=== PATIENT | male | born 1950 | race Caucasian/White ===

== ENCOUNTER 2021-03-08 08:16 | Emergency (ER) | payer BC, MEDICAID ==
[~2021-03-08] VITALS: Ht 180.3 cm; Wt 134.1 kg
[~2021-03-08 08:16] MED LIST: HYDR25SU32 RC; PANT-47 PO; SERT25TA PO
[2021-03-08 09:21] LABS: BASOPHILS # (AUTO) 0.1 X10'3 (0-0.2); BASOPHILS % (AUTO) 0.9 % (0-1); EOSINOPHILS # (AUTO) 0.2 X10'3 (0-0.9); EOSINOPHILS % (AUTO) 3.6 % (0-6); HEMATOCRIT 40.4 % (42.0-52.0); HEMOGLOBIN 13.3 g/dl (14.0-17.9); LYMPHOCYTES # (AUTO) 1.3 X10'3 (1.1-4.8); MEAN CORPUSCULAR HEMOGLOBIN 29.4 PG (27.0-31.0); MEAN CORPUSCULAR HGB CONC 32.8 g/dL (33.0-36.5); MEAN CORPUSCULAR VOLUME 89.5 FL (78-98); MEAN PLATELET VOLUME 9.8 FL (7.4-10.4); MONOCYTES # (AUTO) 0.4 X10'3 (0-0.9); MONOCYTES % (AUTO) 6.5 % (2-12); PLATELET COUNT 193 X10'3 (140-440); RED BLOOD COUNT 4.51 X10'6 (4.70-6.10)
[2021-03-08 09:37] LABS: ALANINE AMINOTRANSFERASE 28 U/L (12-78); ALBUMIN 3.4 G/DL (3.4-5.0); ALBUMIN/GLOBULIN RATIO 1.1 (1.1-1.5); ALKALINE PHOSPHATASE 89 IU/L (46-116); ANION GAP 10 (8-16); ASPARTATE AMINO TRANSFERASE 19 U/L (10-37); BILIRUBIN,TOTAL 0.4 MG/DL (0.1-1.0); BLOOD UREA NITROGEN 8 MG/DL (7-18); CALCIUM 8.4 MG/DL (8.5-10.1); CHLORIDE 108 MMOL/L (99-107); CREATININE 0.73 MG/DL (0.60-1.10); ETHANOL < 0.010 GM/DL (0.0-0.010); GLUCOSE 132 MG/DL (70-104); POTASSIUM 3.4 MMOL/L (3.5-5.1); SODIUM 145 MMOL/L (135-145); TOTAL CARBON DIOXIDE 26.9 MMOL/L (24-32); TOTAL PROTEIN 6.5 G/DL (6.4-8.2); eGFR > 90 ML/MIN
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
[2021-03-08 10:20] LABS: URINE AMPHETAMINE SCREEN NEGATIVE (Neg); URINE BARBITUATE SCREEN NEGATIVE (Neg); URINE BENZODIAZEPINES SCREEN NEGATIVE (Neg); URINE CANNABINOID SCREEN NEGATIVE (Neg); URINE COCAINE SCREEN NEGATIVE (Neg); URINE METHADONE SCREEN NEGATIVE (Neg); URINE OPIATE SCREEN NEGATIVE (Neg); URINE PHENCYCLIDINE SCREEN NEGATIVE (Neg)
--- NOTE | 2021-03-08 10:40 | NUR ---
Pt. sitting in bed talking, appears to be responding to internal stimuli.
--- NOTE | 2021-03-08 13:12 | NUR ---
Pt is calm and cooperative. Occationally talks to himself. Given lunch tray. FSBS=95 before lunch.
--- NOTE | 2021-03-08 13:29 | NUR ---
Covid swab obtained. Pt originally refused. Security was called. Pt complied.
--- NOTE | 2021-03-08 13:34 | NUR ---
Pt refuses to discuss home medications. "My doctor is in charge of that." Unable to Reconcile Meds at this time.
--- NOTE | 2021-03-08 13:45 | NUR ---
Pt up to void.
--- NOTE | 2021-03-08 14:24 | NUR ---
"I am going to check out now. I am leaving right now." He is menacing. Pacing the floor. Security was paged.
[2021-03-08] MEDS ORDERED: diphenhydrAMINE 50 mg/ml inj IM ONE ×2 (14:40→19:55)
[2021-03-08] MEDS ORDERED: haloperidol lactate 5mg/ml inj IM ONE (14:40)
--- NOTE | 2021-03-08 14:40 | NUR ---
Pt is refusing medications. Continues to be menacing, agressively pointing his finger, "You are part of the problem." Security paged.
--- NOTE | 2021-03-08 14:50 | NUR ---
Security at bedside during medication administration. Pt is compliant when security is presant.
--- NOTE | 2021-03-08 15:13 | NUR ---
Pt got out of bed and stated, "I can leave now. I was told that I can go." Reminded that he must stay. He sat back down and continued to talk to himself.
--- NOTE | 2021-03-08 18:44 | NUR ---
Patient sedated d/t IM medications. Provided warm blanket and physical assessment completed. Did not wake for dinner.
--- NOTE | 2021-03-08 19:44 | NUR ---
Patient awoke agitated and appears to be respondin to IS. Patient dismissed nurse upon introduction.
[2021-03-08] MEDS ORDERED: LORazepam 2 mg/ml vial ONE (19:48)
[2021-03-08] MEDS ORDERED: diphenhydrAMINE 50 mg/ml inj ONE (19:49)
[2021-03-08] MEDS ORDERED: LORazepam 2 mg/ml vial IM ONE (19:55)
--- NOTE | 2021-03-08 19:57 | NUR ---
Patient continued to escalate. Nurse attempted to engage; patient told nurse, "get back to your desk you stupid bitch." Ativan 2mg IM and Benadryl 50mg IM provided per MD order; with security standby. Patient continues to express profanity toward staff.
--- NOTE | 2021-03-08 20:57 | NUR ---
Patient observed sleeping. He does not appear to be having difficulties; resperations even and non labored. Patient self repositioning.
--- NOTE | 2021-03-08 22:18 | NUR ---
Report to [facility], Eliana,
--- NOTE | 2021-03-08 23:31 | NUR ---
Patient appears to be sleeping without difficulty. No respiratory distress presented. Self repositioning.
--- NOTE | 2021-03-09 01:04 | NUR ---
Patient appears to be sleeping without difficulty. Continues to self reposition and no respiratory distress presented.
--- NOTE | 2021-03-09 03:28 | NUR ---
Patient observed sleeping and does not appear to be having difficulty. No respirator distress observed and self repositioning.
--- NOTE | 2021-03-09 05:01 | NUR ---
Patient appears to be sleeping without difficulty. No respiratory distress observed. Patient continues to slef reposition.
--- NOTE | 2021-03-09 09:12 | NUR ---
Pt in bed quietly mumbling words to himself. Intermittent periods of verbal agitation toward medical staff. Pt redirectable and able to distract.
--- NOTE | 2021-03-09 12:00 | NUR ---
Pt in bed eyes closed.
--- NOTE | 2021-03-09 12:02 | NUR ---
Pt is lying in bed awake. Denies SI & HI at this time.
--- NOTE | 2021-03-09 15:00 | NUR ---
Pt in bed resting comfortably. Denies SI/HI at this time.
--- NOTE | 2021-03-09 17:35 | NUR ---
Patient refused vitals.
[2021-03-09] MEDS ORDERED: haloperidol lactate 5mg/ml inj ONE ×2 (17:47→17:49)
[2021-03-09] MEDS ORDERED: LORazepam 2 mg/ml vial IM ONE (18:05)
[2021-03-09] MEDS ORDERED: diphenhydrAMINE 50 mg/ml inj IM ONE (18:05)
--- NOTE | 2021-03-09 19:08 | NUR ---
Pt finished with dinner, pt is currenty sleeping on left side in no distress, appears to be sleeping.
--- NOTE | 2021-03-09 21:31 | NUR ---
Pt appears to be sleeping, in no distress.
--- NOTE | 2021-03-10 00:17 | NUR ---
pt appears to be sleeping in his back, no distress noted.
--- NOTE | 2021-03-10 02:13 | NUR ---
Pt appears to be sleeping, no distress noted.
--- NOTE | 2021-03-10 05:02 | NUR ---
Pt appears to be sleeping, no distress noted.
--- NOTE | 2021-03-10 05:11 | NUR ---
pt refused vitals.
[2021-03-10] MEDS ORDERED: FLUT16SP2 BOTHNARES (12:46)
[2021-03-10] MEDS ORDERED: METF-437 PO (12:46)
[2021-03-10] MEDS ORDERED: ALBU8HFA PO (12:46)
[2021-03-10] MEDS ORDERED: FLO0.4C PO (12:46)
[2021-03-10] MEDS ORDERED: NICO-687 TOP (12:46)
[2021-03-10] MEDS ORDERED: LISI20TA28 PO (12:46)
[2021-03-10] MEDS ORDERED: PANT-47 PO (12:46)
[2021-03-10] MEDS ORDERED: ATOR40TA PO (12:46)
[2021-03-10] MEDS ORDERED: ASPI-1265 PO (12:46)
[2021-03-10] MEDS ORDERED: albuterol 2.5 MG/3 ML nebule NEB PRN (14:35)
[2021-03-10] MEDS ORDERED: lisinopril 10 MG tablet PO SCH (14:39)
[2021-03-10] MEDS ORDERED: aspirin 81mg tab.chew PO SCH (14:40)
[2021-03-10] MEDS ORDERED: pantoprazole 40mg Tablet.DR PO SCH (14:42)
[2021-03-10] MEDS ORDERED: tamsulosin 0.4mg capsule PO SCH (14:43)
[2021-03-10] MEDS ORDERED: nicotine 21mg patch - 24 hr TD SCH (14:43)
--- NOTE | 2021-03-10 17:08 | NUR ---
[facility] accepted pt for inpatient treatment. Dr. Davis is accepting doctor. [address], [place]. Would like a nurse to nurse report. [phone]
--- NOTE | 2021-03-10 17:16 | NUR ---
Nurse to Nurse report called to Selam ramirez RN.
[2021-03-10] MEDS ORDERED: metFORMIN 850mg tablet PO SCH (18:00)
--- NOTE | 2021-03-10 19:13 | NUR ---
[facility] ETA 45 MIN
--- NOTE | 2021-03-10 19:28 | NUR ---
The patient is resting on his bed. He is polite
--- NOTE | 2021-03-10 20:31 | NUR ---
Nurse to nurse with Peggy at [facility] [phone]
[2021-03-10 20:32] VITALS: BP 159/81
[2021-03-11] MEDS ORDERED: atorvastatin 20mg tablet PO SCH (08:00)
[2021-03-11] MEDS ORDERED: fluticasone nasal spray 16GM bottle NS SCH (08:00)
== END 2021-03-10 20:34 ==
LOC: ER 08:16
DX: F20.0 Paranoid schizophrenia (principal); Z20.822 Contact with and (suspected) exposure to COVID-19; Z60.2 Problems related to living alone; Z98.890 Other specified postprocedural states; Z79.82 Long term (current) use of aspirin; Z79.899 Other long term (current) drug therapy
CPT/HCPCS: 36415; 80053; 80305; 80320; 82948; 84443; 85025; 87635; 96372; 99285; C9803; J1200; J1630; J2060

== ENCOUNTER 2021-05-25 15:43 | Inpatient (IN) | payer BC, MEDICAID ==
[~2021-05-25] VITALS: Ht 180.3 cm; Wt 112.0 kg
[~2021-05-25 15:43] MED LIST changes: +ALBU8HFA PO; +ASPI-1265 PO; +ATOR40TA PO; +FLO0.4C PO; +FLUT16SP2 BOTHNARES; -HYDR25SU32 RC; +LISI20TA28 PO; +METF-437 PO; +NICO-687 TD; +PALI9TAB4 PO; +SERT-433 PO; -SERT25TA PO; +TRAZ-251 PO
[2021-05-25 16:47] LABS: BASOPHILS # (AUTO) 0.1 X10'3 (0-0.2); EOSINOPHILS # (AUTO) 0.1 X10'3 (0-0.9); EOSINOPHILS % (AUTO) 1.3 % (0-6); HEMATOCRIT 35.5 % (42.0-52.0); HEMOGLOBIN 12.7 g/dl (14.0-17.9); LYMPHOCYTES # (AUTO) 1.2 X10'3 (1.1-4.8); LYMPHOCYTES % (AUTO) 10.8 % (21-51); MEAN CORPUSCULAR HEMOGLOBIN 31.1 PG (27.0-31.0); MEAN CORPUSCULAR HGB CONC 35.7 g/dL (33.0-36.5); MEAN CORPUSCULAR VOLUME 87.1 FL (78-98); MEAN PLATELET VOLUME 9.3 FL (7.4-10.4); MONOCYTES # (AUTO) 0.9 X10'3 (0-0.9); MONOCYTES % (AUTO) 8.3 % (2-12); NEUTROPHILS # (AUTO) 8.7 X10'3 (1.8-7.7); NEUTROPHILS % (AUTO) 78.6 % (42-75); PLATELET COUNT 282 X10'3 (140-440); RED BLOOD COUNT 4.08 X10'6 (4.70-6.10); RED CELL DISTRIBUTION WIDTH 13.7 % (11.5-14.5)
[2021-05-25 17:01] LABS: ALANINE AMINOTRANSFERASE 27 U/L (12-78); ALBUMIN 3.2 G/DL (3.4-5.0); ALBUMIN/GLOBULIN RATIO 0.8 (1.1-1.5); ALKALINE PHOSPHATASE 100 IU/L (46-116); ANION GAP 13 (8-16); ASPARTATE AMINO TRANSFERASE 22 U/L (10-37); BILIRUBIN,TOTAL 0.4 MG/DL (0.1-1.0); BLOOD UREA NITROGEN 24 MG/DL (7-18); BUN/CREATININE RATIO 29.6 (5.4-32.0); CALCIUM 8.9 MG/DL (8.5-10.1); CHLORIDE 102 MMOL/L (99-107); CREATININE 0.81 MG/DL (0.60-1.10); GLUCOSE 145 MG/DL (70-104); POTASSIUM 4.2 MMOL/L (3.5-5.1); SODIUM 142 MMOL/L (135-145); TOTAL CARBON DIOXIDE 27.4 MMOL/L (24-32); eGFR > 90 ML/MIN
[2021-05-25 17:12] LABS: ETHANOL < 0.010 GM/DL (0.0-0.010)
[2021-05-25 18:15] LABS: CLARITY,URINE CLEAR (Clear); COLOR,URINE YELLOW (Yellow); GLUCOSE, URINE NEGATIVE (Neg); KETONES,URINE 15 mg/dl (Neg); LEUKOCYTE ESTERASE ,URINE NEGATIVE (Neg); NITRITES, URINE NEGATIVE (Neg); OCCULT BLOOD,URINE NEGATIVE (Neg); PROTEIN,URINE TRACE mg/dl (Neg); UROBILINOGEN,URINE 0.2 E.U/dL (0.2-1.0)
[2021-05-25 18:28] LABS: UA COLLECTION TYPE URINAL
[2021-05-25 18:29] LABS: HYALINE CASTS 0-3 /LPF (NEGATIVE); MUCUS STRANDS FEW /LPF (Neg); SQUAMOUS EPITHELIAL CELL,UR FEW /LPF (FEW)
[2021-05-25 18:30] LABS: BACTERIA,URINE FEW /HPF (Neg); RBC,URINE 0-2 /HPF (0-2); WBC,URINE 0-4 /HPF (0-4)
[2021-05-25 18:31] LABS: URINE AMPHETAMINE SCREEN NEGATIVE (Neg); URINE BARBITUATE SCREEN NEGATIVE (Neg); URINE BENZODIAZEPINES SCREEN NEGATIVE (Neg); URINE CANNABINOID SCREEN NEGATIVE (Neg); URINE COCAINE SCREEN NEGATIVE (Neg); URINE METHADONE SCREEN NEGATIVE (Neg); URINE OPIATE SCREEN NEGATIVE (Neg); URINE PHENCYCLIDINE SCREEN NEGATIVE (Neg)
--- NOTE | 2021-05-25 20:00 | NUR ---
patient in using restroom at this time with aid, patient was incontinent in brief and cleaned off
[2021-05-25] MEDS ORDERED: DOXE50CA4 PO (20:01)
[2021-05-25] MEDS ORDERED: AMOX-580 PO (20:03)
[2021-05-25] MEDS ORDERED: LISI20TA28 PO (20:07)
[2021-05-25] MEDS ORDERED: DOXY100C76 PO (20:10)
[2021-05-25] MEDS ORDERED: TRAZ-251 PO (20:50)
[2021-05-25] MEDS ORDERED: SERT25TA PO (20:52)
--- NOTE | 2021-05-25 21:00 | NUR ---
patient is awake and requested to use the bathroom, pt was assisted. patient was able to communicate alert and orientated questions appropriatly at this time.
[2021-05-25] MEDS ORDERED: NICO-687 TD (21:01)
--- NOTE | 2021-05-25 22:00 | NUR ---
pictures wehre taken of patients wounds on groin area and bottom all documented in wounds comment.
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
[2021-05-25] MEDS ORDERED: LORazepam 2 mg/ml vial IM ONE (22:50)
[2021-05-25] MEDS ORDERED: haloperidol lactate 5mg/ml inj IM ONE (22:50)
[2021-05-25] MEDS ORDERED: diphenhydrAMINE 50 mg/ml inj IM ONE (22:50)
--- NOTE | 2021-05-25 23:00 | NUR ---
patient was yelling at staff members and yelling "tell that road driver to stop watching me i dont want that cameroonian getting into my business" also yelling many slurs of obscenities at all staff members. patient was unable to be calmed down by staff members. doctor was told about circumstances and medicaiton was ordered. patient was unable to answer any questions appropriatly.
[2021-05-25] MEDS ORDERED: albuterol 2.5 MG/3 ML nebule NEB PRN (23:25)
--- NOTE | 2021-05-26 | NUR ---
patient is resting supine
--- NOTE | 2021-05-26 01:00 | NUR ---
patient sleeping on right side
--- NOTE | 2021-05-26 02:00 | NUR ---
patient is sleeping on right side
--- NOTE | 2021-05-26 03:00 | NUR ---
patient is resting on right side.
--- NOTE | 2021-05-26 04:19 | NUR ---
patient is resting on right side.
--- NOTE | 2021-05-26 05:00 | NUR ---
patient resting. no complaints at this time
--- NOTE | 2021-05-26 07:00 | NUR ---
pt. resting in bed.
[2021-05-26] MEDS ORDERED: LORazepam 1 MG tablet PO ONE (07:25)
[2021-05-26] MEDS: sertraline 50mg tablet PO SCH (07:41)
[2021-05-26] MEDS: tamsulosin 0.4mg capsule PO SCH (07:41)
[2021-05-26] MEDS: aspirin 81mg tab.chew PO SCH (07:42)
[2021-05-26] MEDS: lisinopril 10 MG tablet PO SCH (07:42)
[2021-05-26] MEDS: atorvastatin 20mg tablet PO SCH (07:42)
[2021-05-26] MEDS: amox tr/potassium clavulanate 875/125mg TAB PO SCH ×2 (07:42→19:51)
[2021-05-26] MEDS: pantoprazole 40mg Tablet.DR PO SCH (07:42)
[2021-05-26] MEDS: nicotine 21mg patch - 24 hr TD SCH (07:43)
[2021-05-26] MEDS: fluticasone nasal spray 16GM bottle NS SCH (08:00)
[2021-05-26] MEDS: metFORMIN 850mg tablet PO SCH ×3 (08:00→19:51)
--- NOTE | 2021-05-26 08:00 | NUR ---
pt. agitated and cursing. Pt given 2 mg of Ativan.
[2021-05-26] MEDS: DOXYCYCLINE 100MG CAPSULE PO SCH ×2 (08:53→17:58)
--- NOTE | 2021-05-26 09:00 | NUR ---
pt. resting comfortably in bed.
--- NOTE | 2021-05-26 11:00 | NUR ---
Pt. in bed resting comfortably.
--- NOTE | 2021-05-26 13:00 | NUR ---
Pt. sitting in bed eating lunch.
[2021-05-26] MEDS ORDERED: NICOTINE POLACRILEX 2 MG LOZENGE BC PRN (16:20)
[2021-05-26] MEDS ORDERED: acetaminophen 325mg tablet PO PRN ×2 (16:20)
[2021-05-26] MEDS ORDERED: loperamide 2mg capsule PO PRN (16:20)
--- NOTE | 2021-05-26 16:21 | NUR ---
Admission note: Pt admitted to [place] [facility] today on a 5150 at 1556 for GD escorted from our ER escorted by security via W/C. Pt was found trespassing and defecating on a doctors porch more than once. Pt covered in his own feces, delusional and responding to internal stimuli. Pt arrives to the unit incontinent of feces, with a splint to the R hand, RIS. Pt resistant to care. Pt refuses MRSA nasal swab. Refuses skin check. Pt does have various rashes with pictures taken in the ER. PT refuses to allow staff to help in the shower. PT kicks staff out of the shower room and showers self. Pt has history of schizoaffective disorder, anxiety, DM II. Pt arrived with no belongings except something in the ER safe. Clothes were soiled/ruined and disposed of.
[2021-05-26 17:38] VITALS: BP 108/54
[2021-05-26] MEDS: lactobacillus rhamnosus 10,000 MMU CELLS/CAPSULE PO SCH (19:51)
[2021-05-26] MEDS: traZODone 50mg tablet PO PRN (19:51)
--- NOTE | 2021-05-27 01:16 | NUR ---
Nursing Progress Note: Clemente Legal hold: 5150 Client on involuntary status for GD Report received from [facility] with use of SBAR. Why are they here: Pt admitted to [place] [facility] on a 5150 at 1556 for GD escorted from our ER by security via W/C. Pt was found trespassing and defecating on a doctors porch more than once. Pt covered in his own feces, delusional and responding to internal stimuli. Pt arrives to the unit incontinent of feces, with a splint to the R hand, RIS. Pt resistant to care. Pt refuses MRSA nasal swab. Refuses skin check. Pt does have various rashes with pictures taken in the ER. PT refuses to allow staff to help in the shower. PT kicks staff out of the shower room and showers self. Pt has history of schizoaffective disorder, anxiety, DM II. Pt arrived with no belongings except something in the ER safe. Clothes were soiled/ruined and disposed of. Assessment What has happened this shift: Received pt lying in bed. When asked how pt was doing he states, I already took my meds and I need my hand wrapped. When asked why his hand is in a cast pt states I fell and slipped on concrete. Pt refused care, 1:1 assessment and told this RN to get out and that he knows this RN is talking about him. At med pass the pt stated are you trying to poison me? What color of skin was the Dr who prescribed these to me? Pt took all HS medication and went back to bed. S/I, H/I: Denies A/VH: Denies Sleep: ADL's: Needs assistance Group attendance: NA Were meds taken: Yes Any med S/E: None observed or reported Mental Status Exam Appearance: Disheveled with green scrubs Eye contact: Fair/intense Behavior: Irritable, resistant to care Speech: Clear, audible, minimal Mood: Irritable Affect: Blunted Thought process: Thought blocking Thought Content: Meeting needs Cognition: A/O Insight: Poor Judgment: Poor Interventions PRN's used: Therapeutic interventions: Maintained a safe and supportive environment, ensured contract for safety, provided clear and simple instructions, attempted to provide therapeutic communication, encouraged independent performance of ADLs and provided assistance as needed, and maintained Q 15 min safety checks. Restraints/seclusion/emergency medication: NA Justification of Continued Inpatient Treatment: Requires interruption of current crisis in a safe and therapeutic environment.
--- NOTE | 2021-05-27 07:32 | NUR ---
Note: Pt soiled BM this AM. Pt refused labs. Assisted pt with cleanup and new scrubs and new linen.
[2021-05-27] MEDS ORDERED: traMADol 50MG tablet PO ONE (07:45)
[2021-05-27 08:00] VITALS: BP 110/72
[2021-05-27] MEDS: nicotine 21mg patch - 24 hr TD SCH (08:00)
[2021-05-27] MEDS: fluticasone nasal spray 16GM bottle NS SCH (08:00)
[2021-05-27] MEDS: amox tr/potassium clavulanate 875/125mg TAB PO SCH ×2 (08:00→20:27)
[2021-05-27] MEDS: tamsulosin 0.4mg capsule PO SCH (08:26)
[2021-05-27] MEDS: aspirin 81mg tab.chew PO SCH (08:26)
[2021-05-27] MEDS: lactobacillus rhamnosus 10,000 MMU CELLS/CAPSULE PO SCH ×2 (08:26→20:27)
[2021-05-27] MEDS: pantoprazole 40mg Tablet.DR PO SCH (08:26)
[2021-05-27] MEDS: PALIPERIDONE 3 MG TAB.ER.24 PO SCH (08:26)
[2021-05-27] MEDS: sertraline 50mg tablet PO SCH (08:27)
[2021-05-27] MEDS: lisinopril 10 MG tablet PO SCH (08:27)
[2021-05-27] MEDS: atorvastatin 20mg tablet PO SCH (08:27)
[2021-05-27] MEDS: metFORMIN 850mg tablet PO SCH ×3 (08:29→20:28)
[2021-05-27] MEDS: DOXYCYCLINE 100MG CAPSULE PO SCH ×2 (08:30→17:13)
[2021-05-27 11:03] LABS: HEMOGLOBIN A1C 6.6 % (4.5-6.2)
[2021-05-27 11:18] LABS: CHOL/HDL RATIO 2.7 (0.00-4.99); CHOLESTEROL 77 MG/DL (0-200); HDL CHOLESTEROL 29 MG/DL (35-60); LDL CHOLESTEROL 41 MG/DL (50-100); TRIGLYCERIDES 77 MG/DL (20-135)
--- NOTE | 2021-05-27 13:03 | NUR ---
Note: Attempted to help pt change soiled pants and attends. Pt refusing help. Attempted to reapply melvin bandage to pts splint but pt uncooperative. Pt states he takes care of himself and pt is not taking care of himself. PT partially cleaned up, refused attends. Pt is wearing green scrubs. PT threw his soiled linen onto the middle of the floor with his soiled pants and attends. Pt will be eating in his room so not to spread feces all over the group room.
[2021-05-27] MEDS: traMADol 50MG tablet PO SCH ×2 (13:05→20:28)
--- NOTE | 2021-05-27 14:43 | NUR ---
Nursing Progress Note: Legal hold: 5150 Client on involuntary status for GD Report received from Avani Calix RN with use of SBAR. Why are they here: Pt admitted to [place] on a 5150 at 1556 for GD escorted from our ER by security via W/C. Pt was found trespassing and defecating on a doctors porch more than once. Pt covered in his own feces, delusional and responding to internal stimuli. Pt arrives to the unit incontinent of feces, with a splint to the R hand, RIS. Pt resistant to care. Pt refuses MRSA nasal swab. Refuses skin check. Pt does have various rashes with pictures taken in the ER. PT refuses to allow staff to help in the shower. PT kicks staff out of the shower room and showers self. Pt has history of schizoaffective disorder, anxiety, DM II. Pt arrived with no belongings except something in the ER safe. Clothes were soiled/ruined and disposed of. Assessment What has happened this shift: Patietn resting in bed this am, this short story writer approached patient to introduce my self, patient was rude and foul mouth. Clemente said "get the fu*k out of my room, patient was very aggressive. PCT spoke to Clemente in regard to his aggression, patient did listen. This short story writer passed am medication in the breakfast room, this included pain medication for his fx right arm. Patient was thankful but still cranky. Patient refused labs this am, but did allow a x-ray, although x-ray was not good quality due to splint being somewhat in place. Clemente has soiled himself 2 times as of this note, CRN has tried to help patient with clean up and he is less than helpful per CRN notes. Clemente denies the need of any psych help. "I don't need psych help, why are you pushing that on me?".l S/I, H/I: Denies A/VH: Denies Sleep: rested in his room most of the day ADL's: Needs assistance Group attendance: NA Were meds taken: Yes Any med S/E: None observed or reported Mental Status Exam Appearance: Disheveled with green scrubs Eye contact: Fair/intense Behavior: Irritable, resistant to care Speech: Clear, audible, and loud Mood: Irritable Affect: Blunted Thought process: "I don't need anyones help get out of here" Thought Content: Hard to access Cognition: A/O x 3 not to situation Insight: Poor Judgment: Poor Interventions PRN's used: Tramadol now is scheduled Therapeutic interventions: Maintained a safe and supportive environment, ensured contract for safety, provided clear and simple instructions, attempted to provide therapeutic communication, encouraged independent performance of ADLs and provided assistance as needed, and maintained Q 15 min safety checks. Restraints/seclusion/emergency medication: NA Justification of Continued Inpatient Treatment: Requires interruption of current crisis in a safe and therapeutic environment. Clemente is unable to plan for a safe discharge back into the community at this time. patient would likely be re admitted if discharged
[2021-05-27 20:03] VITALS: BP 96/58
--- NOTE | 2021-05-28 00:20 | NUR ---
Nursing Progress Note: Legal hold: 5150 Client on involuntary status for GD Report received from [facility] with use of SBAR. Why are they here: Pt admitted to [place] [facility] on a 5150 at 1556 for GD escorted from our ER by security via W/C. Pt was found trespassing and defecating on a doctors porch more than once. Pt covered in his own feces, delusional and responding to internal stimuli. Pt arrives to the unit incontinent of feces, with a splint to the R hand, RIS. Pt resistant to care. Pt refuses MRSA nasal swab. Refuses skin check. Pt does have various rashes with pictures taken in the ER. PT refuses to allow staff to help in the shower. PT kicks staff out of the shower room and showers self. Pt has history of schizoaffective disorder, anxiety, DM II. Pt arrived with no belongings except something in the ER safe. Clothes were soiled/ruined and disposed of. Assessment What has happened this shift: Patient was in bed at the start of shift, this flex o writer operator approached patient to introduce my self, patient was a little grumpy. Pt stayed in his room all shift was emily compliant but did not interact with this nurse. S/I, H/I: Denies A/VH: Denies Sleep: See sleep assessment ADL's: Needs assistance Group attendance: NA Were meds taken: Yes Any med S/E: None observed or reported Mental Status Exam Appearance: Disheveled with green scrubs Eye contact: Fair/intense Behavior: Irritable, resistant to care Speech: Clear, audible, and loud Mood: Irritable Affect: Blunted Thought process: "I don't need anyones help get out of here" Thought Content: Hard to access Cognition: A/O x 3 not to situation Insight: Poor Judgment: Poor Interventions PRN's used: Tramadol now is scheduled Therapeutic interventions: Maintained a safe and supportive environment, ensured contract for safety, provided clear and simple instructions, attempted to provide therapeutic communication, encouraged independent performance of ADLs and provided assistance as needed, and maintained Q 15 min safety checks. Restraints/seclusion/emergency medication: NA Justification of Continued Inpatient Treatment: Requires interruption of current crisis in a safe and therapeutic environment. Clemente is unable to plan for a safe discharge back into the community at this time. patient would likely be re admitted if discharged
[2021-05-28 08:00] VITALS: BP 95/68
[2021-05-28] MEDS: lisinopril 10 MG tablet PO SCH (08:00)
[2021-05-28] MEDS: aspirin 81mg tab.chew PO SCH (08:03)
[2021-05-28] MEDS: metFORMIN 850mg tablet PO SCH ×3 (08:04→20:02)
[2021-05-28] MEDS: lactobacillus rhamnosus 10,000 MMU CELLS/CAPSULE PO SCH ×2 (08:04→20:00)
[2021-05-28] MEDS: PALIPERIDONE 3 MG TAB.ER.24 PO SCH (08:04)
[2021-05-28] MEDS: traMADol 50MG tablet PO SCH ×3 (08:04→20:01)
[2021-05-28] MEDS: pantoprazole 40mg Tablet.DR PO SCH (08:04)
[2021-05-28] MEDS: sertraline 50mg tablet PO SCH (08:04)
[2021-05-28] MEDS: atorvastatin 20mg tablet PO SCH (08:04)
[2021-05-28] MEDS: tamsulosin 0.4mg capsule PO SCH (08:04)
[2021-05-28] MEDS: nicotine 21mg patch - 24 hr TD SCH (08:05)
[2021-05-28] MEDS: fluticasone nasal spray 16GM bottle NS SCH (08:05)
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
--- NOTE | 2021-05-28 13:46 | NUR ---
Nursing Progress Note: Legal hold: 5150 Client on involuntary status for GD Report received from [facility] with use of SBAR. Why are they here: Pt admitted to [place] [facility] on a 5150 at 1556 for GD escorted from our ER by security via W/C. Pt was found trespassing and defecating on a doctors porch more than once. Pt covered in his own feces, delusional and responding to internal stimuli. Pt arrives to the unit incontinent of feces, with a splint to the R hand, RIS. Pt resistant to care. Pt refuses MRSA nasal swab. Refuses skin check. Pt does have various rashes with pictures taken in the ER. PT refuses to allow staff to help in the shower. PT kicks staff out of the shower room and showers self. Pt has history of schizoaffective disorder, anxiety, DM II. Pt arrived with no belongings except something in the ER safe. Clothes were soiled/ruined and disposed of. Assessment What has happened this shift: Patient was asleep at change of shift and up for breakfast. Patient introduced herself and patient did not respond. RN gave patient his morning medication. Patient went back to bed after breakfast. Patient sleeps if he is not eating. RN gave patient his afternoon meds. Patient was laying in bed and he mumbled, I'll take them later. RN stood there and patient eventually took them. Patient does not want to engage with RN S/I, H/I: Denies A/VH: Denies Sleep: slept/stayed in be except for eating. ADL's: Needs assistance Group attendance: No Were meds taken: Yes Any med S/E: None observed or reported Mental Status Exam Appearance: Disheveled with green scrubs Eye contact: Fair/intense Behavior: Irritable Speech: Mumbles Mood: Irritable Affect: Blunted Thought process: Unable to ascertain Thought Content: Unable to ascertain Cognition: A/O x 3 not to situation Insight: Poor Judgment: Poor Interventions PRN's used: None Therapeutic interventions: Maintained a safe and supportive environment, ensured contract for safety, provided clear and simple instructions, attempted to provide therapeutic communication, encouraged independent performance of ADLs and provided assistance as needed, and maintained Q 15 min safety checks. Restraints/seclusion/emergency medication: NA Justification of Continued Inpatient Treatment: Requires interruption of current crisis in a safe and therapeutic environment. Clemente is unable to plan for a safe discharge back into the community at this time. patient would likely be re admitted if discharged
--- NOTE | 2021-05-29 04:38 | NUR ---
Nursing Progress Note: Legal hold: 5150 Client on involuntary status for GD Report received from [facility] with use of SBAR. Why are they here: Pt admitted to [facility] for [facility] on a 5150 at 1556 for GD escorted from our ER by security via W/C. Pt was found trespassing and defecating on a doctors porch more than once. Pt covered in his own feces, delusional and responding to internal stimuli. Pt arrives to the unit incontinent of feces, with a splint to the R hand, RIS. Pt resistant to care. Pt refuses MRSA nasal swab. Refuses skin check. Pt does have various rashes with pictures taken in the ER. PT refuses to allow staff to help in the shower. PT kicks staff out of the shower room and showers self. Pt has history of schizoaffective disorder, anxiety, DM II. Pt arrived with no belongings except something in the ER safe. Clothes were soiled/ruined and disposed of. Assessment What has happened this shift: Pt isolated to his room all evening and did not come out for snack. Pt is irritable and rude to staff. When asked if he is suicidal, pt yelled at this rn, why the fuck do you guys keep asking me that, Im not supposed to be here. This rn explained that he is on psychiatric unit and those are typical questions asked by nursing staff. Pt continued to rant in an angry manner about how he hates [facility] and is moving away. Pt had stool streaks in his bed so linens were changed. Pt did not make any delusional statements or appear to be responding to IS. Pt accepted hs meds. S/I, H/I: Denies A/VH: Denies Sleep: See sleep assessment ADL's: Needs assistance Group attendance: NA Were meds taken: Yes Any med S/E: None observed or reported Mental Status Exam Appearance: Disheveled with green scrubs Eye contact: Fair/intense Behavior: Irritable, resistant to care Speech: Clear, audible, and loud Mood: Irritable Affect: Blunted Thought process: linear Thought Content: anger Cognition: A/O x 3 not to situation Insight: Poor Judgment: Poor Interventions PRN's used: none Therapeutic interventions: Maintained a safe and supportive environment, ensured contract for safety, provided clear and simple instructions, attempted to provide therapeutic communication, encouraged independent performance of ADLs and provided assistance as needed, and maintained Q 15 min safety checks. Restraints/seclusion/emergency medication: NA Justification of Continued Inpatient Treatment: Requires interruption of current crisis in a safe and therapeutic environment. Clemente is unable to plan for a safe discharge back into the community at this time. patient would likely be re admitted if discharged
[2021-05-29] MEDS: fluticasone nasal spray 16GM bottle NS SCH (08:00)
[2021-05-29] MEDS: lisinopril 10 MG tablet PO SCH (08:00)
[2021-05-29] MEDS: metFORMIN 850mg tablet PO SCH ×3 (08:02→20:08)
[2021-05-29] MEDS: nicotine 21mg patch - 24 hr TD SCH (08:02)
[2021-05-29] MEDS: PALIPERIDONE 3 MG TAB.ER.24 PO SCH (08:03)
[2021-05-29] MEDS: lactobacillus rhamnosus 10,000 MMU CELLS/CAPSULE PO SCH ×2 (08:03→20:08)
[2021-05-29] MEDS: pantoprazole 40mg Tablet.DR PO SCH (08:03)
[2021-05-29] MEDS: traMADol 50MG tablet PO SCH ×3 (08:03→20:08)
[2021-05-29] MEDS: atorvastatin 20mg tablet PO SCH (08:03)
[2021-05-29] MEDS: tamsulosin 0.4mg capsule PO SCH (08:03)
[2021-05-29] MEDS: sertraline 50mg tablet PO SCH (08:03)
[2021-05-29] MEDS: aspirin 81mg tab.chew PO SCH (08:03)
--- NOTE | 2021-05-29 15:26 | NUR ---
Nursing Progress Note: Legal hold: 5150 Client on involuntary status for GD Report received from FERN Cormier with use of SBAR. Why are they here: Pt admitted to [place] [facility] on a 5150 at 1556 for GD escorted from our ER by security via W/C. Pt was found trespassing and defecating on a doctors porch more than once. Pt covered in his own feces, delusional and responding to internal stimuli. Pt arrives to the unit incontinent of feces, with a splint to the R hand, RIS. Pt resistant to care. Pt refuses MRSA nasal swab. Refuses skin check. Pt does have various rashes with pictures taken in the ER. PT refuses to allow staff to help in the shower. PT kicks staff out of the shower room and showers self. Pt has history of schizoaffective disorder, anxiety, DM II. Pt arrived with no belongings except something in the ER safe. Clothes were soiled/ruined and disposed of. Assessment What has happened this shift: Patient was asleep at change of shift and up for breakfast. Patient took his medication at prescribed and asked RN what the medication was though he has taken the same medication everyday, RN explained each medication. Patient was calm and took the medication. Patient denies depression and denies suicidal ideation. Patient wouldn't respond when asked if hearing voices. [facility] Psychologist and staff came today to evaluate patient for possible Conservatorship. Patient went into the meeting and immediately started yelling at them and walked out. They were unable to evaluate patient. Patient isolates in his room in bed all day. S/I, H/I: Denies A/VH: Denies Sleep: slept/stayed in bed except for eating. ADL's: Needs assistance Group attendance: No Were meds taken: Yes Any med S/E: None observed or reported Mental Status Exam Appearance: Disheveled with green scrubs Eye contact: Fair/intense Behavior: Irritable Speech: Mumbles Mood: Irritable Affect: Blunted Thought process: Unable to ascertain Thought Content: Unable to ascertain Cognition: A/O x 3 not to situation Insight: Poor Judgment: Poor Interventions PRN's used: None Therapeutic interventions: Maintained a safe and supportive environment, ensured contract for safety, provided clear and simple instructions, attempted to provide therapeutic communication, encouraged independent performance of ADLs and provided assistance as needed, and maintained Q 15 min safety checks. Restraints/seclusion/emergency medication: NA Justification of Continued Inpatient Treatment: Requires interruption of current crisis in a safe and therapeutic environment. Clemente is unable to plan for a safe discharge back into the community at this time. patient would likely be re admitted if discharged
[2021-05-29 20:00] VITALS: BP 122/59
--- NOTE | 2021-05-30 05:16 | NUR ---
Nursing Progress Note: Legal hold: 5150 Client on involuntary status for GD Report received from FERN Park with use of SBAR. Why are they here: Pt admitted to [place] for [facility] on a 5150 at 1556 for GD escorted from our ER by security via W/C. Pt was found trespassing and defecating on a doctors porch more than once. Pt covered in his own feces, delusional and responding to internal stimuli. Pt arrives to the unit incontinent of feces, with a splint to the R hand, RIS. Pt resistant to care. Pt refuses MRSA nasal swab. Refuses skin check. Pt does have various rashes with pictures taken in the ER. PT refuses to allow staff to help in the shower. PT kicks staff out of the shower room and showers self. Pt has history of schizoaffective disorder, anxiety, DM II. Pt arrived with no belongings except something in the ER safe. Clothes were soiled/ruined and disposed of. Assessment What has happened this shift: Pt isolated to his room all evening and did not come out for snack. Pt continues to be irritable and rude to staff. Pt reports that his diarrhea is improving and pt did not have any incontinence tonight. Pt accepted hs meds. S/I, H/I: Denies A/VH: Denies Sleep: See sleep assessment ADL's: Needs assistance Group attendance: NA Were meds taken: Yes Any med S/E: None observed or reported Mental Status Exam Appearance: Disheveled with green scrubs Eye contact: Fair/intense Behavior: Irritable, resistant to care Speech: Clear, audible, and loud Mood: Irritable Affect: Blunted Thought process: linear Thought Content: anger Cognition: A/O x 3 not to situation Insight: Poor Judgment: Poor Interventions PRN's used: none Therapeutic interventions: Maintained a safe and supportive environment, ensured contract for safety, provided clear and simple instructions, attempted to provide therapeutic communication, encouraged independent performance of ADLs and provided assistance as needed, and maintained Q 15 min safety checks. Restraints/seclusion/emergency medication: NA Justification of Continued Inpatient Treatment: Requires interruption of current crisis in a safe and therapeutic environment. Clemente is unable to plan for a safe discharge back into the community at this time. patient would likely be re admitted if discharged
[2021-05-30 08:00] VITALS: BP 111/45
[2021-05-30] MEDS: fluticasone nasal spray 16GM bottle NS SCH (08:00)
[2021-05-30] MEDS: atorvastatin 20mg tablet PO SCH (08:49)
[2021-05-30] MEDS: pantoprazole 40mg Tablet.DR PO SCH (08:49)
[2021-05-30] MEDS: aspirin 81mg tab.chew PO SCH (08:49)
[2021-05-30] MEDS: lactobacillus rhamnosus 10,000 MMU CELLS/CAPSULE PO SCH ×3 (08:50→20:31)
[2021-05-30] MEDS: sertraline 25mg tablet PO SCH (08:50)
[2021-05-30] MEDS: PALIPERIDONE 3 MG TAB.ER.24 PO SCH (08:50)
[2021-05-30] MEDS: tamsulosin 0.4mg capsule PO SCH (08:50)
[2021-05-30] MEDS: metFORMIN 850mg tablet PO SCH ×3 (08:50→20:31)
[2021-05-30] MEDS: nicotine 21mg patch - 24 hr TD SCH (08:51)
[2021-05-30] MEDS: traMADol 50MG tablet PO SCH ×4 (09:15→20:52)
--- NOTE | 2021-05-30 17:49 | NUR ---
Nursing Progress Note: Legal hold: 5250 Client on involuntary status for GD Report received from nurse with use of SBAR: FERN Cormier Why are they here: Pt admitted to [place] for [facility] on a 5150 at 1556 for GD escorted from our ER by security via W/C. Pt was found trespassing and defecating on a doctors porch more than once. Pt covered in his own feces, delusional and responding to internal stimuli. Pt arrives to the unit incontinent of feces, with a splint to the R hand, RIS. Pt resistant to care. Pt refuses MRSA nasal swab. Refuses skin check. Pt does have various rashes with pictures taken in the ER. PT refuses to allow staff to help in the shower. PT kicks staff out of the shower room and showers self. Pt has history of schizoaffective disorder, anxiety, DM II. Pt arrived with no belongings except something in the ER safe. Clothes were soiled/ruined and disposed of. Assessment What has happened this shift: Received pt. sleeping in bed at the beginning of the shift, he was awoken to attend breakfast in the Group Room and afterwards returned immediately back to bed. Pt. was overheard by this production underwriter to be yelling aloud in his room responding to internal stimuli. Pt. yelled out agitatedly, "Shut up B....!" This production underwriter introduced herself and established rapport, pt. was cooperative with all medications. He denies any S/I or H/I, and when questioned why he is here, states, "I came in for diarrhea and then they put me up here." This production underwriter attempted to question pt. regarding A/V/TREJO, however he became slightly agitated and stated, "I'm not answering any more questions, get out of my room!" Pt. continued to isolate in his room throughout the day, but did attend morning group. He then reported two episodes of diarrhea in the afternoon. Pt. continues to c/o chronic diarrhea and his bilateral buttocks appears excoriated and reddened. This was endorsed to Dr. Becerra, and obtained orders for A&D Ointment to be applied to area BID. Also, obtain stool samples including testing for C-Diff. Pt. has his own room and was asked to isolate here (including for meals) while cultures are pending, he endorsed understanding. Will endorse to Noc shift. S/I, H/I: Denies A/VH: Denies, however pt. is observed to be responding to internal stimuli Sleep: Sleep hours are 7.5, and pt. naps throughout much of the shift. ADL's: Pt. requires direction and encouragement Group attendance: yes Were meds taken: Yes, Lisinopril discontinued per Dr. Becerra, per trend of decreased BP Any med S/E None Mental Status Exam Appearance: Disheveled r/t laying in bed Eye contact: Moderate Behavior: Cooperative, fatigued , irritable, guarded, and withdrawn Speech: Soft, and responds minimally to direct questions only Mood: Irritable at times Affect: Constricted Thought process: Poverty of thought with possible thought blockign Thought Content: A/V/TREJO Cognition: A&O X3 Insight: Poor Judgment: Poor Interventions PRN's used: None Therapeutic interventions: Introduced self and established rapport, maintained a safe and therapeutic environment, ensured contract for safety, provided clear and simple instructions, provided direction and encouragement in order to perform ADLs, monitored pain and splint to rt. hand, obtained orders for stool sample and A&D ointment to bilateral buttocks r/t to ongoing diarrhea, and maintained Q 15imin safety checks. Restraints/seclusion/emergency medication: N/A Justification of Continued Inpatient Treatment: Pt. requires medication adjustments and a safe and supportive environment.
[2021-05-30 20:00] VITALS: BP 135/69
[2021-05-30] MEDS: vitamin A & D ointment-NF 1 APPLIC TUBE TP SCH (20:00)
[2021-05-30] MEDS: traZODone 50mg tablet PO PRN (20:31)
[2021-05-30] MEDS ORDERED: magnesium hydroxide 30ml (MOM) UD suspension PO PRN (21:30)
[2021-05-30] MEDS: mag hydrox/Alum hydrox/simeth 30ml oral suspension PO PRN (21:42)
[2021-05-30 23:19] LABS: OCCULT BLOOD STOOL NEGATIVE (Neg)
--- NOTE | 2021-05-30 23:30 | NUR ---
Nursing Progress Note Legal hold: 525 for grave disability Report received from John Gutierrez RN Why are they here: Pt admitted to [place] for [facility] on a 5150 at 1556 for GD escorted from our ER by security via W/C. Pt was found trespassing and defecating on a doctors porch more than once. Pt covered in his own feces, delusional and responding to internal stimuli. Pt arrives to the unit incontinent of feces, with a splint to the R hand, RIS. Pt resistant to care. Pt refuses MRSA nasal swab. Refuses skin check. Pt does have various rashes with pictures taken in the ER. PT refuses to allow staff to help in the shower. PT kicks staff out of the shower room and showers self. Pt has history of schizoaffective disorder, anxiety, DM II. Pt arrived with no belongings except something in the ER safe. Clothes were soiled/ruined and disposed of. Assessment What has happened this shift: The patient isolated to his room and was very agitated the entire evening. When staff went into his room to give him fresh ice water he yelled at them to get out and refused to let them refill his water pitcher. At one point he got out of bed and slammed his door. When approached for his evening assessment he yelled from behind his curtain to get out and he refused to engage in any kind of physical or mental health assessment. He yelled, "I don't want you cock suckers here! [place] [employer] fucking bastards !" He complained of pain in his wrist but refused any HS medications including pain medications. He did allow staff to get his vital signs. He also made staff aware that he had a bowel movement and a specimen was sent to the lab. He did make a delusional statement, "I need to be out of here by the because I'm being awarded marketing officer of the year" His insight and judgement are very poor. Justification of Continued Inpatient Treatment: The patient is unable to formulate a realistic plan for food, nursing home or clothing. He is making delusional statements. He has not been able to maintain himself in the community.
[2021-05-31 07:23] VITALS: BP 133/61
--- NOTE | 2021-05-31 07:36 | NUR ---
Initial: Pt admitted on 5150 per EMR. Pt currently on Regular diet w/ mostly 100% intake of meals meeting needs. [facility] 05/30 w/ routine bowel care available. No nutrition intervention implemented at this time, will continue to monitor. Recs: 1. Continue Regular diet as tolerated 2. Bowel care per rx 3. Weekly wts Addendum: 05/31/21 at [address] Amended: Links added.
[2021-05-31] MEDS: fluticasone nasal spray 16GM bottle NS SCH ×2 (08:00→08:05)
[2021-05-31] MEDS: vitamin A & D ointment-NF 1 APPLIC TUBE TP SCH ×2 (08:00→20:00)
[2021-05-31] MEDS: nicotine 21mg patch - 24 hr TD SCH (08:05)
[2021-05-31] MEDS: atorvastatin 20mg tablet PO SCH (08:05)
[2021-05-31] MEDS: metFORMIN 850mg tablet PO SCH ×3 (08:05→20:15)
[2021-05-31] MEDS: aspirin 81mg tab.chew PO SCH (08:05)
[2021-05-31] MEDS: pantoprazole 40mg Tablet.DR PO SCH (08:05)
[2021-05-31] MEDS: PALIPERIDONE 3 MG TAB.ER.24 PO SCH (08:05)
[2021-05-31] MEDS: lactobacillus rhamnosus 10,000 MMU CELLS/CAPSULE PO SCH ×2 (08:05→20:16)
[2021-05-31] MEDS: tamsulosin 0.4mg capsule PO SCH (08:05)
[2021-05-31] MEDS: sertraline 25mg tablet PO SCH (08:06)
[2021-05-31] MEDS: traMADol 50MG tablet PO SCH ×3 (08:09→20:16)
--- NOTE | 2021-05-31 16:41 | NUR ---
Nursing Progress Note: Legal hold: 5250 Client on involuntary status for GD Report received from MARIVEL Cormier with use of SBAR Why they are here: Pt admitted to [place] for [facility] on a 5150 at 1556 for GD escorted from our ER by security via W/C. Pt was found trespassing and defecating on a doctors porch more than once. Pt covered in his own feces, delusional and responding to internal stimuli. Pt arrives to the unit incontinent of feces, with a splint to the R hand, RIS. Pt resistant to care. Pt refuses MRSA nasal swab. Refuses skin check. Pt does have various rashes with pictures taken in the ER. PT refuses to allow staff to help in the shower. PT kicks staff out of the shower room and showers self. Pt has history of schizoaffective disorder, anxiety, DM II. Pt arrived with no belongings except something in the ER safe. Clothes were soiled/ruined and disposed of. Assessment What has happened this shift: Patient resting quietly in bed at the start of the shift. Eats breakfast in the community room and interacts very little, but appropriately with staff and peers. Cooperative with 1:1 assessment but is somewhat irritable and guarded. Takes medications without issue. Pt. continues to c/o chronic diarrhea. Per report the patients buttocks is excoriated and red, but patient refuses evaluation and prescribed A&D ointment. Denies SI/ HI/ AH/ VH but appears to be responding to internal stimuli, and makes delusional statements about being a ski patrol officer. In the afternoon patient has a court hearing after which the patient appears agitated and is yelling/ swearing in his room. Declines PRN medication and states he wants to be left alone. S/I, H/I: Denies A/VH: Denies but appears be responding to internal stimuli Sleep: Appears to be napping off and on. ADL's: Independent Group attendance: No Were meds taken: Refuses Flonase and topical A&D ointment Any med S/E: None observed or reported Mental Status Exam Appearance: Older man with hutchison hair and benites, somewhat disheveled wearing green unit scrubs. Eye contact: Fair Behavior: Irritable, guarded, generally cooperative but sometimes refuses care. Speech: Generally clear but mumbled at times. Responds minimally to direct questions only. Mood: Fine if everyone would just leave me alone! Appears irritated. Affect: Constricted Thought process: Delusional Thought Content: Poverty of thought with possible thought blocking. Does not know why is here. Wants to be left alone. Cognition: A&O X3, does not understand his situation or why he is here. Insight: Poor Judgment: Poor Interventions PRN's used: None Therapeutic interventions: Introduced self and established rapport, maintained a safe and therapeutic environment, ensured contract for safety, provided clear and simple instructions, provided direction and encouragement in order to perform ADLs, monitored pain and splint to rt. hand, obtained orders for stool sample and A&D ointment to bilateral buttocks r/t to ongoing diarrhea, and maintained Q 15imin safety checks. Restraints/seclusion/emergency medication: N/A Justification of Continued Inpatient Treatment: Pt. requires medication adjustments and a safe and supportive environment.
[2021-05-31 20:00] VITALS: BP 103/53
[2021-05-31] MEDS: traZODone 50mg tablet PO PRN (20:15)
--- NOTE | 2021-05-31 22:12 | NUR ---
Nursing Progress Note Legal hold: 5250 for grave disability Report received from Brenda SHIRLEY Why they are here: Pt admitted to [place] for [facility] health on a 5150 at 1556 for GD escorted from our ER by security via W/C. Pt was found trespassing and defecating on a doctors porch more than once. Pt covered in his own feces, delusional and responding to internal stimuli. Pt arrives to the unit incontinent of feces, with a splint to the R hand, RIS. Pt resistant to care. Pt refuses MRSA nasal swab. Refuses skin check. Pt does have various rashes with pictures taken in the ER. PT refuses to allow staff to help in the shower. PT kicks staff out of the shower room and showers self. Pt has history of schizoaffective disorder, anxiety, DM II. Pt arrived with no belongings except something in the ER safe. Clothes were soiled/ruined and disposed of. Assessment What has happened this shift: The patient has had a better evening than yesterday. He was out of his room more and did socialize some with select peers. He does have significant irritability and tolerates one to one with staff poorly. He did take his evening medications and he was aware of what his medications were. He can be overheard in his room talking to himself, "I'm going to [facility]" He does seem to be tolerating another patient in his room. His insight and judgement are impaired by his current mental health symptoms. He was given a PRN trazodone at . Justification of Continued Inpatient Treatment: Medication adjustments continue. The patient remains very angry and irritable. He had his 5250 hearing today and it was upheld. The plan is to have the patient placed on an [facility] conservatorship as he has not been able to maintain himself in the community.
[2021-06-01] MEDS: nicotine 21mg patch - 24 hr TD SCH (07:49)
[2021-06-01] MEDS: atorvastatin 20mg tablet PO SCH (07:50)
[2021-06-01] MEDS: PALIPERIDONE 3 MG TAB.ER.24 PO SCH (07:50)
[2021-06-01] MEDS: lactobacillus rhamnosus 10,000 MMU CELLS/CAPSULE PO SCH ×2 (07:50→20:26)
[2021-06-01] MEDS: pantoprazole 40mg Tablet.DR PO SCH (07:50)
[2021-06-01] MEDS: traMADol 50MG tablet PO SCH ×3 (07:50→20:26)
[2021-06-01] MEDS: tamsulosin 0.4mg capsule PO SCH (07:50)
[2021-06-01] MEDS: aspirin 81mg tab.chew PO SCH (07:50)
[2021-06-01] MEDS: vitamin A & D ointment-NF 1 APPLIC TUBE TP SCH ×2 (07:51→20:00)
[2021-06-01] MEDS: sertraline 25mg tablet PO SCH (07:51)
[2021-06-01] MEDS: fluticasone nasal spray 16GM bottle NS SCH (07:51)
[2021-06-01] MEDS: metFORMIN 850mg tablet PO SCH ×3 (07:51→20:26)
--- NOTE | 2021-06-01 16:34 | NUR ---
Nursing Progress Note: Legal hold: 5250 Client on involuntary status for GD Report received from MARIVEL Cash with use of SBAR. Why they are here: Pt admitted to [place] for [facility] health on a 5150 at 1556 for GD escorted from our ER by security via W/C. Pt was found trespassing and defecating on a doctors porch more than once. Pt covered in his own feces, delusional and responding to internal stimuli. Pt arrives to the unit incontinent of feces, with a splint to the R hand, RIS. Pt resistant to care. Pt refuses MRSA nasal swab. Refuses skin check. Pt does have various rashes with pictures taken in the ER. PT refuses to allow staff to help in the shower. PT kicks staff out of the shower room and showers self. Pt has history of schizoaffective disorder, anxiety, DM II. Pt arrived with no belongings except something in the ER safe. Clothes were soiled/ruined and disposed of. Assessment What has happened this shift: Patient awake in his room at the start of the shift. Prior to breakfast patient drinks coffee and spends time in common areas. Eats breakfast in the community room and interacts appropriately with staff and peers. Appears somewhat irritable when approached. Splint remains in place to RUE. Routine Ultram appears effective for pain control. Noted mumbling to himself at times. In the afternoon patient is more friendly and social. Talks about the [place] he [place] and his family. Also expresses frustration with dealing with people. States, You know when this pandemic hit people changed. Watches TV in the community room and socializes with staff and peers. S/I, H/I: Denies A/VH: Denies but appears be responding to internal stimuli Sleep: Takes short naps during the day. ADL's: Independent Group attendance: No Were meds taken: Refuses Flonase and topical A&D ointment Any med S/E: None observed or reported Mental Status Exam Appearance: Older man with hutchison hair and benites, somewhat disheveled wearing green unit scrubs. Eye contact: Fair Behavior: Cooperative, irritable at times, guarded Speech: Clear, normal rate/ volume Mood: Fine. Affect: Constricted Thought process: Linear Thought Content: Reminiscent about family and previous life experiences. Cognition: A&O X3 to self, place and time Insight: Poor Judgment: Poor Interventions PRN's used: None Therapeutic interventions: Introduced self and established rapport, maintained a safe and therapeutic environment, ensured contract for safety, provided clear and simple instructions, provided direction and encouragement in order to perform ADLs, monitored pain and splint to rt. hand, obtained orders for stool sample and A&D ointment to bilateral buttocks r/t to ongoing diarrhea, and maintained Q 15imin safety checks. Restraints/seclusion/emergency medication: N/A Justification of Continued Inpatient Treatment: Pt. requires medication adjustments and a safe and supportive environment.
[2021-06-01] MEDS ORDERED: saliva stimulant agent 45ml spray MM PRN (17:25)
[2021-06-01 20:00] VITALS: BP 127/71
[2021-06-01] MEDS: traZODone 50mg tablet PO PRN (20:27)
--- NOTE | 2021-06-02 02:17 | NUR ---
Assessment What has happened this shift: Patient awake in rec room at the start of the shift. Seen laughing at the TV. Splint remains in place to RUE. Routine Ultram appears effective for pain control. Patient friendly and social. Asked him if the police brought him to [facility]. He stated that "yes, but he bought that house and has the papers to prove it". I explained that there must be some kind of mix up that needs to be clarified for him. He was able to discuss this without any problem. S/I, H/I: Denies ADL's: Independent Were meds taken: Yes, Refuses topical A&D ointment Any med S/E: None observed or reported Mental Status Exam Appearance: Older man with hutchison hair and benites, somewhat disheveled wearing green unit scrubs. Eye contact: Fair Behavior: Cooperative, pkeasant Speech: Clear Cognition: A&O X3 to self, place and time Interventions PRN's used: None Therapeutic interventions: Introduced self and established rapport, maintained a safe and therapeutic environment, provided clear and simple instructions, monitored pain and splint to rt. hand and maintained Q 15imin safety checks. Justification of Continued Inpatient Treatment: Pt. requires medication adjustments and a safe and supportive environment.
[2021-06-02] MEDS: nicotine 21mg patch - 24 hr TD SCH (07:25)
[2021-06-02] MEDS: PALIPERIDONE 3 MG TAB.ER.24 PO SCH (07:25)
[2021-06-02] MEDS: aspirin 81mg tab.chew PO SCH (07:26)
[2021-06-02] MEDS: traMADol 50MG tablet PO SCH ×3 (07:26→20:46)
[2021-06-02] MEDS: pantoprazole 40mg Tablet.DR PO SCH (07:26)
[2021-06-02] MEDS: sertraline 25mg tablet PO SCH (07:26)
[2021-06-02] MEDS: lactobacillus rhamnosus 10,000 MMU CELLS/CAPSULE PO SCH ×2 (07:26→20:34)
[2021-06-02] MEDS: metFORMIN 850mg tablet PO SCH ×3 (07:26→20:34)
[2021-06-02] MEDS: tamsulosin 0.4mg capsule PO SCH (07:26)
[2021-06-02] MEDS: atorvastatin 20mg tablet PO SCH (07:26)
[2021-06-02] MEDS: fluticasone nasal spray 16GM bottle NS SCH (08:00)
[2021-06-02] MEDS: vitamin A & D ointment-NF 1 APPLIC TUBE TP SCH ×2 (08:00→21:57)
[2021-06-02 08:36] VITALS: BP 120/63
--- NOTE | 2021-06-02 16:22 | NUR ---
Nursing Progress Note: Legal hold: 5250 Client on involuntary status for GD Report received from MARIVEL Cash with use of SBAR. Why they are here: Pt admitted to [place] for [facility] health on a 5150 at 1556 for GD escorted from our ER by security via W/C. Pt was found trespassing and defecating on a doctors porch more than once. Pt covered in his own feces, delusional and responding to internal stimuli. Pt arrives to the unit incontinent of feces, with a splint to the R hand, RIS. Pt resistant to care. Pt refuses MRSA nasal swab. Refuses skin check. Pt does have various rashes with pictures taken in the ER. PT refuses to allow staff to help in the shower. PT kicks staff out of the shower room and showers self. Pt has history of schizoaffective disorder, anxiety, DM II. Pt arrived with no belongings except something in the ER safe. Clothes were soiled/ruined and disposed of. Assessment What has happened this shift: Patient is resting quietly in bed at the start of the shift. Awake prior to breakfast and spends time in common areas socializing and drinking coffee. Interacts appropriately with staff and peers. Cooperative with 1:1 and medications. Appears to be responding to internal stimuli AEB mumbling to himself. Some delusional thinking AEB talking about owning a tractor and working for [employer]. Cast remains in place to right wrist. Complains of some pain but verbalizes relief from routine Ultram. In the afternoon patient takes a short nap and watches TV in common areas. S/I, H/I: Denies A/VH: Denies but appears be responding to internal stimuli Sleep: Takes short naps during the day. ADL's: Independent Group attendance: No Were meds taken: Refuses Flonase and topical A&D ointment Any med S/E: None observed or reported Mental Status Exam Appearance: Older man with hutchison hair and benites, somewhat disheveled wearing green unit scrubs. Eye contact: Fair Behavior: Cooperative, pleasant Speech: Clear, normal rate/ volume Mood: Fine. Affect: Constricted Thought process: Linear, somewhat delusional Thought Content: Reminiscent about family. Talks about working on his tractor Cognition: A&O X3 to self, place and time Insight: Poor Judgment: Poor Interventions PRN's used: None Therapeutic interventions: Introduced self and established rapport, maintained a safe and therapeutic environment, ensured contract for safety, provided clear and simple instructions, provided direction and encouragement in order to perform ADLs, monitored pain and splint to rt. hand, obtained orders for stool sample and A&D ointment to bilateral buttocks r/t to ongoing diarrhea, and maintained Q 15imin safety checks. Restraints/seclusion/emergency medication: N/A Justification of Continued Inpatient Treatment: Pt. requires medication adjustments and a safe and supportive environment.
[2021-06-02 19:00] VITALS: BP 109/42
--- NOTE | 2021-06-02 20:30 | NUR ---
nicotine patch removed
[2021-06-02] MEDS: traZODone 50mg tablet PO PRN (23:43)
--- NOTE | 2021-06-03 03:46 | NUR ---
RN Progress Notes: Legal Hold: 5250 for GD Reason for admit: pt defecating on a doctors porch; was delusional & resistant to care This Shift: Behavior: cooperative in routine assessment Speech: clear eye contact: good Appearance: well groomed meds: alll taken; PRN trazadone given to help with sleep; states right hand more painful since he took a shower earlier today (on scheduled Ultram for pain; refuses PRN tylenol); also c/o of mouth soreness; states he used biotene moisturizing mouth wash 3 times today, but it didn't really help
[2021-06-03 08:00] VITALS: BP 111/60
[2021-06-03] MEDS: fluticasone nasal spray 16GM bottle NS SCH (08:00)
[2021-06-03] MEDS: tamsulosin 0.4mg capsule PO SCH (08:00)
[2021-06-03] MEDS: traMADol 50MG tablet PO SCH ×3 (09:12→20:20)
[2021-06-03] MEDS: nicotine 21mg patch - 24 hr TD SCH ×3 (09:13→09:27)
[2021-06-03] MEDS: lactobacillus rhamnosus 10,000 MMU CELLS/CAPSULE PO SCH ×2 (09:15→20:20)
[2021-06-03] MEDS: aspirin 81mg tab.chew PO SCH (09:15)
[2021-06-03] MEDS: metFORMIN 850mg tablet PO SCH ×3 (09:16→20:20)
[2021-06-03] MEDS: pantoprazole 40mg Tablet.DR PO SCH (09:16)
[2021-06-03] MEDS: PALIPERIDONE 3 MG TAB.ER.24 PO SCH (09:16)
[2021-06-03] MEDS: atorvastatin 20mg tablet PO SCH (09:16)
[2021-06-03] MEDS: sertraline 25mg tablet PO SCH (09:17)
[2021-06-03] MEDS: vitamin A & D ointment-NF 1 APPLIC TUBE TP SCH ×2 (09:20→20:34)
--- NOTE | 2021-06-03 15:28 | NUR ---
Paged orthotist/prosthetist to examine pt's splinted right wrist
--- NOTE | 2021-06-03 17:18 | NUR ---
Nursing Progress Note: Legal hold: 5250 Client on involuntary status for GD Report received from MARIVEL Cash with use of SBAR. Why they are here: Pt admitted to [place] for [facility] on a 5150 at 1556 for GD escorted from our ER by security via W/C. Pt was found trespassing and defecating on a doctors porch more than once. Pt covered in his own feces, delusional and responding to internal stimuli. Pt arrives to the unit incontinent of feces, with a splint to the R hand, RIS. Pt resistant to care. Pt refuses MRSA nasal swab. Refuses skin check. Pt does have various rashes with pictures taken in the ER. PT refuses to allow staff to help in the shower. PT kicks staff out of the shower room and showers self. Pt has history of schizoaffective disorder, anxiety, DM II. Pt arrived with no belongings except something in the ER safe. Clothes were soiled/ruined and disposed of. Assessment What has happened this shift: Received patient while he was lying in bed sleeping. Patient ambulated to the dining room and medications given at this time. Followed patient to his room to complete 1:1 assessment, and apply Vitamin A & D ointment on buttocks. Patient has a red warm excoriated inner buttocks area, and under testicular sack and in area between buttocks and testicles. Patient given Ultram which helps. Patient is cooperative with taking medications. Patient is resting quietly in bed most of the morning. Patient ambulated to TV room at approximately 11:15am and is socializing with others. Appears to be responding to internal stimuli AEB mumbling to himself. Some delusional thinking AEB talking about owning a tractor and working for [employer]. Cast remains in place to right wrist. Complains of some pain but verbalizes relief from routine Ultram. In the afternoon patient takes a short nap and watches TV in common areas. S/I, H/I: Denies A/VH: Denies Sleep: Takes naps (approximately 2 hours) in morning and afternoon. ADL's: Independent Group attendance: No Group Meeting today. Were meds taken: Yes, without hesitation. Mental Status Exam Appearance: Older man with [place] hair and benites, somewhat disheveled wearing green unit scrubs. Eye contact: Fair Behavior: Cooperative. pleasant Speech: Clear, normal rate/ volume Mood: Doing great today. Affect: Pleasant. Thought process: Linear. Thought Content: Linear. Cognition: A&O X3 to self, place and time Insight: Poor Judgment: Poor Interventions PRN's used: None Therapeutic interventions: Introduced self and established rapport, maintained a safe and therapeutic environment, ensured contract for safety, provided clear and simple instructions, provided direction and encouragement in order to perform ADLs, monitored pain and splint to rt. hand, obtained orders for stool sample and A&D ointment to bilateral buttocks r/t to ongoing diarrhea, and maintained Q 15imin safety checks. Restraints/seclusion/emergency medication: N/A Justification of Continued Inpatient Treatment: Pt. requires medication adjustments and a safe and supportive environment.
[2021-06-03 20:44] VITALS: BP 105/59
--- NOTE | 2021-06-04 01:18 | NUR ---
Nursing Progress Note: Legal hold: 5250 Client on involuntary status for GD Report received from MARIVEL Gutierrez with use of SBAR. Why they are here: Pt admitted to [facility] for [facility] on a 5150 at 1556 for GD escorted from our ER by security via W/C. Pt was found trespassing and defecating on a doctors porch more than once. Pt covered in his own feces, delusional and responding to internal stimuli. Pt arrives to the unit incontinent of feces, with a splint to the R hand, RIS. Pt resistant to care. Pt refuses MRSA nasal swab. Refuses skin check. Pt does have various rashes with pictures taken in the ER. PT refuses to allow staff to help in the shower. PT kicks staff out of the shower room and showers self. Pt has history of schizoaffective disorder, anxiety, DM II. Pt arrived with no belongings except something in the ER safe. Clothes were soiled/ruined and disposed of. Assessment What has happened this shift:Patient was resting in bed at change of shift. He goweld at the charge nurse when she went in his room to talk to him, Pt got up and ate snack in the group room. He was med compliant then returned to his room. S/I, H/I: Denies A/VH: Denies Sleep: See sleep assessment.. ADL's: Independent Group attendance: No Group Meeting today. Were meds taken: Yes, without hesitation. Mental Status Exam Appearance: Older man with [place] hair and benites, somewhat disheveled wearing green unit scrubs. Eye contact: Fair Behavior: Cooperative. pleasant Speech: Clear, normal rate/ volume Mood: Doing great today. Affect: Pleasant. Thought process: Linear. Thought Content: Linear. Cognition: A&O X3 to self, place and time Insight: Poor Judgment: Poor Interventions PRN's used: None Therapeutic interventions: Introduced self and established rapport, maintained a safe and therapeutic environment, ensured contract for safety, provided clear and simple instructions, provided direction and encouragement in order to perform ADLs, monitored pain and splint to rt. hand, obtained orders for stool sample and A&D ointment to bilateral buttocks r/t to ongoing diarrhea, and maintained Q 15imin safety checks. Restraints/seclusion/emergency medication: N/A Justification of Continued Inpatient Treatment: Pt. requires medication adjustments and a safe and supportive environment.
[2021-06-04 08:00] VITALS: BP 122/62
[2021-06-04] MEDS: sertraline 25mg tablet PO SCH (08:00)
[2021-06-04] MEDS: pantoprazole 40mg Tablet.DR PO SCH (08:00)
[2021-06-04] MEDS: fluticasone nasal spray 16GM bottle NS SCH (08:00)
[2021-06-04] MEDS: tamsulosin 0.4mg capsule PO SCH (08:00)
[2021-06-04] MEDS: atorvastatin 20mg tablet PO SCH ×2 (08:00→08:07)
[2021-06-04] MEDS: lactobacillus rhamnosus 10,000 MMU CELLS/CAPSULE PO SCH ×3 (08:00→20:48)
[2021-06-04] MEDS: aspirin 81mg tab.chew PO SCH ×2 (08:00→08:07)
[2021-06-04] MEDS: metFORMIN 850mg tablet PO SCH ×3 (08:00→20:48)
[2021-06-04] MEDS: vitamin A & D ointment-NF 1 APPLIC TUBE TP SCH ×2 (08:00→20:54)
[2021-06-04] MEDS: PALIPERIDONE 3 MG TAB.ER.24 PO SCH ×2 (08:00→08:07)
[2021-06-04] MEDS: traMADol 50MG tablet PO SCH ×4 (08:08→20:49)
--- NOTE | 2021-06-04 08:21 | NUR ---
Second page to orthoptist re pt's right wrist
[2021-06-04] MEDS: nicotine 21mg patch - 24 hr TD SCH (09:36)
--- NOTE | 2021-06-04 17:49 | NUR ---
Nursing Progress Note: Edwina Ramirez Legal hold: 5250 Client on involuntary status for GD Report received from MARIVEL Cash with use of SBAR. Why they are here: Pt admitted to [place] for [facility] on a 5150 at 1556 for GD escorted from our ER by security via W/C. Pt was found trespassing and defecating on a doctors porch more than once. Pt covered in his own feces, delusional and responding to internal stimuli. Pt arrives to the unit incontinent of feces, with a splint to the R hand, RIS. Pt resistant to care. Pt refuses MRSA nasal swab. Refuses skin check. Pt does have various rashes with pictures taken in the ER. PT refuses to allow staff to help in the shower. PT kicks staff out of the shower room and showers self. Pt has history of schizoaffective disorder, anxiety, DM II. Pt arrived with no belongings except something in the ER safe. Clothes were soiled/ruined and disposed of. Assessment What has happened this shift: Received patient while he was lying in bed sleeping. Pt. awoke to receive his medication and immediately began yelling at documentation writer Doreen ingram told you I dont want any medication, now go away Pt. was educated on the importance of medication compliance, but refused. He was re approached later and refused his meds again, and also refused breakfast. Later in the shift 1:1 assessment completed and pt. minimizes MH needs, he denies SI, HI, he is guarded and on edge. He did admit to pain in the Rt. Hand, and accepted Tramadol. Pt. reports he was admitted here because a sore on my ass and will go home when let out pt. angrily stated I shouldn'tt be here numerous times. Pt. ate his meals in the dining room interacting minimally. He had his splint to the Rt. hand changed and x ray completed. He was compliant with afternoon meds, and attended group. He spent most fee time in his room lying in bed awake. S/I, H/I: Denies A/VH: Denies Sleep: 8.2 hrs per NOC, and takes naps often. ADL's: Independent Group attendance: Yes Were meds taken: Mostly Non-compliant. Mental Status Exam Appearance: Older male somewhat disheveled wearing green unit scrubs. Eye contact: Fair Behavior: Yelling at times and non compliant Speech: Clear Mood: Agitated Affect: Congruent with mood. Thought process: Linear. Thought Content: Leave me the hell alone. Cognition: A&O X3 to self, place and time Insight: Poor Judgment: Poor Interventions PRN's used: None Therapeutic interventions: Introduced self and established rapport, maintained a safe and therapeutic environment, ensured contract for safety, provided clear and simple instructions, provided direction and encouragement in order to perform ADLs, monitored pain and splint to rt. hand, obtained orders for stool sample and A&D ointment to bilateral buttocks r/t to ongoing diarrhea, and maintained Q 15imin safety checks. Restraints/seclusion/emergency medication: N/A Justification of Continued Inpatient Treatment: Pt. requires medication adjustments and a safe and supportive environment.
[2021-06-04 19:56] VITALS: BP 99/55
[2021-06-04] MEDS: traZODone 50mg tablet PO PRN (20:49)
--- NOTE | 2021-06-05 03:31 | NUR ---
Nursing Progress Note: Legal hold: 5250 Client on involuntary status for GD Report received from FERN Gutierrez with use of SBAR. Why they are here: Pt admitted to [place] for [facility] health on a 5150 at 1556 for GD escorted from our ER by security via W/C. Pt was found trespassing and defecating on a doctors porch more than once. Pt covered in his own feces, delusional and responding to internal stimuli. Pt arrives to the unit incontinent of feces, with a splint to the R hand, RIS. Pt resistant to care. Pt refuses MRSA nasal swab. Refuses skin check. Pt does have various rashes with pictures taken in the ER. PT refuses to allow staff to help in the shower. PT kicks staff out of the shower room and showers self. Pt has history of schizoaffective disorder, anxiety, DM II. Pt arrived with no belongings except something in the ER safe. Clothes were soiled/ruined and disposed of. Assessment What has happened this shift: Patient watching TV in the community room at the beginning of shift. Cooperative with care but appears agitated; compliant with medications. PRN Trazodone provided this shift. Patient denies SI, HI, A/VH; no apparent delusions reported. He participated in HS snack prior to bed; observed sleeping and does not appear to be having difficulty. S/I, H/I: Denies A/VH: Denies Sleep: Refer to sleep assessment ADL's: Independent Group attendance: NA Were meds taken: Yes ASE to meds: None observed or reported Mental Status Exam Appearance: Neat, appropriately dressed for the unit Eye contact: Fair Behavior: Cooperative, appears agitated, self isolative Speech: Clear, soft, minimal Mood: Agitated Affect: Constricted Thought process: Linear Thought Content: Meeting needs Cognition: A&O X3 to self, place and time Insight: Poor Judgment: Poor Interventions PRN's used: Trazodone Therapeutic interventions: Introduced self and established rapport, maintained a safe and therapeutic environment, ensured contract for safety, provided clear and simple instructions, provided direction and encouragement in order to perform ADLs, monitored pain and splint to rt. hand, obtained orders for stool sample and A&D ointment to bilateral buttocks r/t to ongoing diarrhea, and maintained Q 15imin safety checks. Restraints/seclusion/emergency medication: NA Justification of Continued Inpatient Treatment: Patient requires interruption of current crisis and medication adjustments in a safe and supportive environment.
[2021-06-05] MEDS: aspirin 81mg tab.chew PO SCH (08:00)
[2021-06-05] MEDS: tamsulosin 0.4mg capsule PO SCH (08:00)
[2021-06-05] MEDS: nicotine 21mg patch - 24 hr TD SCH (08:00)
[2021-06-05] MEDS: pantoprazole 40mg Tablet.DR PO SCH (08:00)
[2021-06-05] MEDS: fluticasone nasal spray 16GM bottle NS SCH (08:00)
[2021-06-05] MEDS: sertraline 25mg tablet PO SCH (08:00)
[2021-06-05] MEDS: atorvastatin 20mg tablet PO SCH (08:00)
[2021-06-05] MEDS: lactobacillus rhamnosus 10,000 MMU CELLS/CAPSULE PO SCH ×2 (08:00→20:00)
[2021-06-05] MEDS: metFORMIN 850mg tablet PO SCH ×3 (08:00→21:00)
[2021-06-05] MEDS: vitamin A & D ointment-NF 1 APPLIC TUBE TP SCH ×2 (08:00→20:00)
[2021-06-05] MEDS: PALIPERIDONE 3 MG TAB.ER.24 PO SCH ×2 (08:00→21:00)
[2021-06-05] MEDS: traMADol 50MG tablet PO SCH ×3 (08:00→22:33)
--- NOTE | 2021-06-05 14:22 | NUR ---
Pt. attended group today. Today's group was about the different communications styles i.e passive, aggressive and assertive. We discussed what the characteristics of each style was. We then discussed where they saw themselves at now and where they would like to be with their communication style. Pt. came into the group late and then shared a bit about his communication style which he reported that he usually will meet the communication style of the person he is with. When he tried to elaborate on this he struggled to make sense of his thoughts and eventually stopped talking. His demeanor was calm and pleasant. Maricruz Duval, [employer]
--- NOTE | 2021-06-05 16:58 | NUR ---
Nursing Progress Note: Edwina Ramirez Legal hold: 5250 Client on involuntary status for GD Report received from MARIVEL Cormier with use of SBAR. Why they are here: Pt admitted to [facility] for [facility] on a 5150 at 1556 for GD escorted from our ER by security via W/C. Pt was found trespassing and defecating on a doctors porch more than once. Pt covered in his own feces, delusional and responding to internal stimuli. Pt arrives to the unit incontinent of feces, with a splint to the R hand, RIS. Pt resistant to care. Pt refuses MRSA nasal swab. Refuses skin check. Pt does have various rashes with pictures taken in the ER. PT refuses to allow staff to help in the shower. PT kicks staff out of the shower room and showers self. Pt has history of schizoaffective disorder, anxiety, DM II. Pt arrived with no belongings except something in the ER safe. Clothes were soiled/ruined and disposed of. Assessment What has happened this shift: Received patient sleeping at shift change. Patient refused vitals, but attended breakfast in the community room. Patient refused his a.m. medications. Attempted to give his Tramadol without success. Patient later was talking on the telephone in the rec room and was yelling loudly about not wanting to be here. Patient threw phone and then headed down to his room. Security was called and patient was laying there yelling. You guys just want my money, [facility] just wants my money and I want to be left the fuck alone. Patient reports he has an upset stomach, offered medication, but patient refused. Patient refused 13:00 medications. During art group, the patient was standing in the hallway, when staff pass by he states get away from me bitch. S/I, H/I: Denies A/VH: Denies Sleep: 7.5 hrs. NOC. ADL's: Independent Group attendance: No Were meds taken: No Mental Status Exam Appearance: Older male somewhat disheveled wearing green unit scrubs. Eye contact: Fair Behavior: Yelling at times and noncompliant Speech: Clear Mood: Angry Affect: Congruent with mood. Thought process: Linear. Thought Content: Get the fuck away from me. Cognition: A&O X3 to self, place and time Insight: Poor Judgment: Poor Interventions PRN's used: None Therapeutic interventions: Introduced self and established rapport, maintained a safe and therapeutic environment, ensured contract for safety, provided clear and simple instructions, provided direction and encouragement in order to perform ADLs, monitored pain and splint to rt. hand, obtained orders for stool sample and A&D ointment to bilateral buttocks r/t to ongoing diarrhea, and maintained Q 15imin safety checks. Restraints/seclusion/emergency medication: N/A Justification of Continued Inpatient Treatment: Pt. requires medication adjustments and a safe and supportive environment.
[2021-06-06] MEDS: PALIPERIDONE 3 MG TAB.ER.24 PO SCH ×2 (00:12→20:44)
[2021-06-06] MEDS: traZODone 50mg tablet PO PRN ×2 (00:14→20:44)
[2021-06-06] MEDS ORDERED: traZODone 50mg tablet PO ONE ×2 (00:15→23:55)
--- NOTE | 2021-06-06 05:17 | NUR ---
RN PROGRESS NOTE: LEGAL HOLD: 5250 for GD REASON FOR ADMIT: Delusional statements and bizarre behavior. Client repeatedly defecated on someone's porch. THIS SHIFT: Client was lying in bed, yelling at COS. Client yelled "Get the hell out of here! Go do your drugs somewhere else!" Client believes there is a vast drug conspiracy in [place] involving the doctors, hospitals, law enforcement, and virtually everyone in [place]. Client also stated, "I'm supposed to go to the [employer] and get an award. I'm undercover." Client was very agitated at the beginning of shift. He also c/o pain in his wrist and hand. Client took Tramadol, Paliperidone, and Trazodone PO. Client refused Metformin and Culturelle stating, "All these meds upset my stomach." Clients mood improved later in shift. Client states, "I don't know why I'm here. I came in because of this (gesturing to his fractured hand) and they put me up here!" DISCHARGE: Client is delusional and has moments of agitation. Requires med adjustment.
[2021-06-06 07:37] VITALS: BP 102/50
[2021-06-06] MEDS: vitamin A & D ointment-NF 1 APPLIC TUBE TP SCH ×3 (08:00→21:37)
[2021-06-06] MEDS: sertraline 25mg tablet PO SCH (08:00)
[2021-06-06] MEDS: metFORMIN 850mg tablet PO SCH ×3 (08:00→20:46)
[2021-06-06] MEDS: aspirin 81mg tab.chew PO SCH (08:00)
[2021-06-06] MEDS: lactobacillus rhamnosus 10,000 MMU CELLS/CAPSULE PO SCH ×2 (08:00→20:43)
[2021-06-06] MEDS: atorvastatin 20mg tablet PO SCH (08:00)
[2021-06-06] MEDS: pantoprazole 40mg Tablet.DR PO SCH (08:00)
[2021-06-06] MEDS: tamsulosin 0.4mg capsule PO SCH (08:00)
[2021-06-06] MEDS: fluticasone nasal spray 16GM bottle NS SCH (08:00)
[2021-06-06] MEDS: traMADol 50MG tablet PO SCH ×3 (08:16→20:45)
[2021-06-06] MEDS: mag hydrox/Alum hydrox/simeth 30ml oral suspension PO PRN ×2 (09:26→21:35)
--- NOTE | 2021-06-06 10:00 | NUR ---
Ortho note: JAMAL Ceballos was called and visited pt. She unwrapped pts splint and rewrapped and checked pts cap refill. Pt happy with the results. Follow up it to happen [address] Vazquez.
--- NOTE | 2021-06-06 14:48 | NUR ---
Reassessment: Pt currently on Regular diet w/ mostly 100% intake of meals and consumes some snacks meeting needs. Pt noted to be refusing most meds. LBM 06/05 w/ routine bowel care available. No nutrition intervention implemented at this time, will continue to monitor. Recs: 1. Continue Regular diet as tolerated 2. Bowel care per rx 3. Weekly wts Addendum: 06/06/21 at [address] Amended: Links added.
--- NOTE | 2021-06-06 16:30 | NUR ---
Nursing Progress Note: Edwina Ramirez Legal hold: 5250 Client on involuntary status for GD Report received from MARIVEL Cormier with use of SBAR. Why they are here: Pt admitted to [place] for [facility] on a 5150 at 1556 for GD escorted from our ER by security via W/C. Pt was found trespassing and defecating on a doctors porch more than once. Pt covered in his own feces, delusional and responding to internal stimuli. Pt arrives to the unit incontinent of feces, with a splint to the R hand, RIS. Pt has history of schizoaffective disorder, anxiety, DM II. Pt arrived with no belongings except something in the ER safe. Clothes were soiled/ruined and disposed of. MRSA and skin check refused. Assessment What has happened this shift: Received patient sleeping. Pt. awoke to receive his medication and was uncooperative and refused all PO meds except Tramadol. 1:1 assessment completed and pt. minimizes MH needs or meds, he denies SI, HI. Pt. reports he is here because a sore on his rear and will go home when we let him out Pt. angrily stated I shouldnt be here and you know it Pt. presents as guarded and suspicious. Pt. c/o GI upset; PRN Maalox given, attempted to educate pt. on importance of routine protonix reminding him he refused it this morning. Pt yelled at lyric writer that bull shift. Pt. ate his meals in the dining room with other cohorts, minimal social interaction observed. Pt. did take afternoon medications. PA on unit to see pt. re cast of the Rt. hand. Pt. attended group today, but spent of his free time in his room lying in bed awake. S/I, H/I: Denies A/VH: Denies Sleep: 5.5 hrs per NOC, one nap ADL's: Independent Group attendance: Yes Were meds taken: Mostly Non-compliant. Mental Status Exam Appearance: Older male somewhat disheveled splint to RUE and wearing green unit scrubs. Eye contact: Fair Behavior: Yelling at times and non compliant Speech: Clear Mood: On edge Affect: Congruent with mood. Thought process: Linear. Thought Content: I shouldnt be here. Cognition: A&O X3 Insight: Poor Judgment: Poor Interventions PRN's used: None Therapeutic interventions: Introduced self and established rapport, maintained a safe and therapeutic environment, ensured contract for safety, provided clear and simple instructions, provided direction and encouragement in order to perform ADLs, monitored pain and splint to rt. hand, obtained orders for stool sample and A&D ointment to bilateral buttocks r/t to ongoing diarrhea, and maintained Q 15imin safety checks. Restraints/seclusion/emergency medication: N/A Justification of Continued Inpatient Treatment: Pt. requires medication adjustments and a safe and supportive environment.
[2021-06-06 20:23] VITALS: BP 103/54
--- NOTE | 2021-06-07 04:27 | NUR ---
RN PROGRESS NOTE: LEGAL HOLD: 5250 for GD REASON FOR ADMIT: Client was delusional. Began trespassing at someone's house, requiring law enforcement to intervene. 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 Client stated, "I'm going to the [employer] on Friday to get an award." Client believes he is in the Hospital because of a hand injury. Denies mental health history. Client is taking Tramadol to manage pain. Reported stomach pain and states, "It's because of the medicine." Client took Mylanta and reported some improvement in his stomach pain. Client took all meds. Had difficulty falling asleep.
[2021-06-07] MEDS: traMADol 50MG tablet PO SCH ×3 (06:25→20:10)
[2021-06-07 08:00] VITALS: BP 131/78
[2021-06-07] MEDS: tamsulosin 0.4mg capsule PO SCH (08:00)
[2021-06-07] MEDS: lactobacillus rhamnosus 10,000 MMU CELLS/CAPSULE PO SCH ×2 (08:00→20:00)
[2021-06-07] MEDS: atorvastatin 20mg tablet PO SCH (08:00)
[2021-06-07] MEDS: nicotine 21mg patch - 24 hr TD SCH (08:00)
[2021-06-07] MEDS: pantoprazole 40mg Tablet.DR PO SCH ×2 (08:00→14:01)
[2021-06-07] MEDS: aspirin 81mg tab.chew PO SCH (08:00)
[2021-06-07] MEDS: sertraline 25mg tablet PO SCH (08:00)
[2021-06-07] MEDS: metFORMIN 850mg tablet PO SCH ×3 (08:00→20:09)
[2021-06-07] MEDS: vitamin A & D ointment-NF 1 APPLIC TUBE TP SCH ×2 (08:00→20:00)
[2021-06-07] MEDS: fluticasone nasal spray 16GM bottle NS SCH (08:00)
--- NOTE | 2021-06-07 17:24 | NUR ---
Nursing Progress Note: Legal hold: 5250 Client on involuntary status for GD Report received from MARIVEL Cormier with use of SBAR. Why they are here: Pt admitted to [place] [facility] on a 5150 at 1556 for GD escorted from our ER by security via W/C. Pt was found trespassing and defecating on a doctors porch more than once. Pt covered in his own feces, delusional and responding to internal stimuli. Pt arrives to the unit incontinent of feces, with a splint to the R hand, RIS. Pt resistant to care. Pt refuses MRSA nasal swab. Refuses skin check. Pt does have various rashes with pictures taken in the ER. PT refuses to allow staff to help in the shower. PT kicks staff out of the shower room and showers self. Pt has history of schizoaffective disorder, anxiety, DM II. Pt arrived with no belongings except something in the ER safe. Clothes were soiled/ruined and disposed of. Assessment What has happened this shift: Received patient while he was awake and ambulating down the hallway to the Community Room. Patient pleasant. Patient was given Tramadol early due to pain 01/30. Patient states I feel much better now and my pain is going away. Patient returned to his room after eating breakfast. Brought all of patients 0800 medications to his room. Patient was awake and resting on his right side with his right arm elevated on pillows. Informed patient that I have brought in his morning medications, and patient states I am all done taking those fucking medications. You are trying to poison me and you know what you are doing. Patients face was red in color and he was yelling at this RN. Informed patient that these are the same medications he has been taking the whole time he was here, and he stated Get the hell out of here. Patient went back to sleep. Patient did not attend am or pm Group Meeting. Later in the day, patient stated I need my stomach pill that you were supposed to give me this morning. Informed the patient I came in the give him his medications after breakfast and he had refused to take all of them. Patient started laughing and stated You are kidding me. Patient received second Tramadol, and slept after eating his lunch in the Community Room. Patient resting at this time. S/I, H/I: Denies A/VH: Denies Sleep: AM & PM naps ADL's: Independent Group attendance: Patient did not attend AM Group, but did attend the afternoon Group Meeting. Were meds taken: No, Patient refused 0800 medications. Took 1300 medications as ordered by MD. Mental Status Exam Appearance: Older male somewhat disheveled wearing green unit scrubs. Eye contact: Fair Behavior: Yelling at times, Noncompliant Speech: Clear Mood: Angry most of the day Affect: Congruent with mood. Thought process: Linear. Thought Content: You are trying to poison me. Meeting own needs. Cognition: A&O X to self, place. Insight: Poor Judgment: Poor Interventions PRN's used: None Therapeutic interventions: Introduced self and established rapport, maintained a safe and therapeutic environment, ensured contract for safety, provided clear and simple instructions, provided direction and encouragement in order to perform ADLs, monitored pain and splint to rt. hand, obtained orders for stool sample and A&D ointment to bilateral buttocks r/t to ongoing diarrhea, and maintained Q 15imin safety checks. Restraints/seclusion/emergency medication: N/A Justification of Continued Inpatient Treatment: Pt. requires medication adjustments and a safe and supportive environment.
[2021-06-07] MEDS: traZODone 50mg tablet PO PRN (20:10)
[2021-06-07] MEDS: PALIPERIDONE 3 MG TAB.ER.24 PO SCH (20:13)
[2021-06-07 20:23] VITALS: BP 100/60
[2021-06-07] MEDS ORDERED: simethicone 80mg chew tab PO ONE (21:05)
[2021-06-07] MEDS ORDERED: simethicone 80mg chew tab PO PRN (21:05)
[2021-06-07] MEDS: mag hydrox/Alum hydrox/simeth 30ml oral suspension PO PRN (21:36)
--- NOTE | 2021-06-08 00:39 | NUR ---
Nursing Progress Note: Legal hold: 5250 Client on involuntary status for GD Report received from [facility]ERN [place] with use of SBAR. Why they are here: Pt admitted to [facility] on a 5150 at 1556 for GD escorted from our ER by security via W/C. Pt was found trespassing and defecating on a doctors porch more than once. Pt covered in his own feces, delusional and responding to internal stimuli. Pt arrives to the unit incontinent of feces, with a splint to the R hand, RIS. Pt resistant to care. Pt refuses MRSA nasal swab. Refuses skin check. Pt does have various rashes with pictures taken in the ER. PT refuses to allow staff to help in the shower. PT kicks staff out of the shower room and showers self. Pt has history of schizoaffective disorder, anxiety, DM II. Pt arrived with no belongings except something in the ER safe. Clothes were soiled/ruined and disposed of. Assessment What has happened this shift: Pt continues to be irritable, rude to staff, resistant to care. Pt refused most of his meds, only taking his metformin and his tramadol. Pt complains about questions being asked, complains about not getting Vicodin. Pt mostly isolated to his room but was out for snack. S/I, H/I: Denies A/VH: Denies, angry at being asked Sleep: Refer to sleep assessment ADL's: Independent Group attendance: NA Were meds taken: only metformin and tramadol ASE to meds: None observed or reported Mental Status Exam Appearance: Neat, appropriately dressed for the unit Eye contact: Fair Behavior: rude, appears agitated, self isolative Speech: Clear, soft, minimal Mood: Agitated Affect: Constricted Thought process: Linear Thought Content: Meeting needs Cognition: A&O X3 to self, place and time Insight: Poor Judgment: Poor Interventions PRN's used: Trazodone, maalox Therapeutic interventions: Introduced self and established rapport, maintained a safe and therapeutic environment, ensured contract for safety, provided clear and simple instructions, provided direction and encouragement in order to perform ADLs, monitored pain and splint to rt. hand, obtained orders for stool sample and A&D ointment to bilateral buttocks r/t to ongoing diarrhea, and maintained Q 15imin safety checks. Restraints/seclusion/emergency medication: NA Justification of Continued Inpatient Treatment: Patient requires interruption of current crisis and medication adjustments in a safe and supportive environment.
[2021-06-08] MEDS: mag hydrox/Alum hydrox/simeth 30ml oral suspension PO PRN ×2 (02:33→21:54)
[2021-06-08 07:35] VITALS: BP 141/80
[2021-06-08] MEDS: fluticasone nasal spray 16GM bottle NS SCH (08:00)
[2021-06-08] MEDS: nicotine 21mg patch - 24 hr TD SCH (08:00)
[2021-06-08] MEDS: vitamin A & D ointment-NF 1 APPLIC TUBE TP SCH ×2 (08:00→20:58)
[2021-06-08] MEDS: atorvastatin 20mg tablet PO SCH (08:04)
[2021-06-08] MEDS: aspirin 81mg tab.chew PO SCH (08:04)
[2021-06-08] MEDS: sertraline 25mg tablet PO SCH (08:04)
[2021-06-08] MEDS: metFORMIN 850mg tablet PO SCH ×3 (08:04→20:56)
[2021-06-08] MEDS: tamsulosin 0.4mg capsule PO SCH (08:04)
[2021-06-08] MEDS: PALIPERIDONE 3 MG TAB.ER.24 PO SCH ×2 (08:04→20:52)
[2021-06-08] MEDS: lactobacillus rhamnosus 10,000 MMU CELLS/CAPSULE PO SCH ×2 (08:04→20:53)
[2021-06-08] MEDS: pantoprazole 40mg Tablet.DR PO SCH (08:04)
[2021-06-08] MEDS: HYDROcodone/acetaminophen 5mg/325mg tablet PO PRN (11:02)
--- NOTE | 2021-06-08 17:23 | NUR ---
Nursing Progress Note: RONAL Legal hold: 5250 Expires 06/12. Client on involuntary status for GD Report received from MARIVEL Eddy with use of SBAR. Why they are here: Pt admitted to [place] for [facility] on a 5150 at 1556 for GD escorted from our ER by security via W/C. Pt was found trespassing and defecating on a doctors porch more than once. Pt covered in his own feces, delusional and responding to internal stimuli. Pt arrives to the unit incontinent of feces, with a splint to the R hand, RIS. Pt resistant to care. Pt refuses MRSA nasal swab. Refuses skin check. Pt does have various rashes with pictures taken in the ER. PT refuses to allow staff to help in the shower. PT kicks staff out of the shower room and showers self. Pt has history of schizoaffective disorder, anxiety, DM II. Pt arrived with no belongings except something in the ER safe. Clothes were soiled/ruined and disposed of. Assessment What has happened this shift: Received patient sleeping at shift change, respirations even and unlabored. Pt woke prior to breakfast and sat in the community room. Pt was pleasant and friendly with job specification writer and peers. Pt was compliant with medication and care. Pt told job specification writer I dont even know why I am here, so much has happened since I saw you last. Pt continues to deny psychotic symptoms. Pt made no delusional comments to job specification writer today. Pt reported 7/10 right hand pain. [place] 5/325mg administered with effect. Pt watched TV most of the shift, no behaviors noted. S/I, H/I: Pt denies both. A/VH: Pt denies both. Sleep: 5.75 hours per sleep assessment. No naps today. ADL's: Independent Group attendance: Declined. Were meds taken: Yes, without issue. Declined A&D ointment and Flonase. Mental Status Exam Appearance: Older male somewhat disheveled wearing green unit scrubs. Eye contact: Fair Behavior: Calm, pleasant, cooperative. Spent day watching T.V Speech: Clear, normal rate/rhythm. Mood: Euthymic Affect: Congruent with mood. Thought process: Linear. Thought Content: Meeting own needs. Cognition: A&O X to self, place. Insight: Poor Judgment: Poor Interventions PRN's used: [place] x1 Therapeutic interventions: Introduced self and established rapport, maintained a safe and therapeutic environment, ensured contract for safety, provided clear and simple instructions, provided direction and encouragement in order to perform ADLs, monitored pain and splint to rt. hand, maintained Q 15imin safety checks. Restraints/seclusion/emergency medication: N/A Justification of Continued Inpatient Treatment: Pt. requires medication adjustments and a safe and supportive environment.
[2021-06-08 19:00] VITALS: BP 118/58
[2021-06-08] MEDS: traZODone 50mg tablet PO PRN (21:04)
--- NOTE | 2021-06-09 02:46 | NUR ---
Nursing Progress Note: Legal hold: 5250 Expires 06/12. Client on involuntary status for GD Report received from [facility] with use of SBAR. Why they are here: Pt admitted to [facility] for [facility] on a 5150 at 1556 for GD escorted from our ER by security via W/C. Pt was found trespassing and defecating on a doctors porch more than once. Pt covered in his own feces, delusional and responding to internal stimuli. Pt arrives to the unit incontinent of feces, with a splint to the R hand, RIS. Pt resistant to care. Pt refuses MRSA nasal swab. Refuses skin check. Pt does have various rashes with pictures taken in the ER. PT refuses to allow staff to help in the shower. PT kicks staff out of the shower room and showers self. Pt has history of schizoaffective disorder, anxiety, DM II. Pt arrived with no belongings except something in the ER safe. Clothes were soiled/ruined and disposed of. Assessment What has happened this shift: Patient isolated in his room for most of the shift. Patient is well oriented, no signs of internal stimuli. 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 When offered evening medications, the patient looks at the medications in a suspicious manner and hesitates before taking. Later the patient was given Maalox for an upset stomach. Vicodin was administered for hand pain. This patient is cooperative, he denies S/I, H/I, or any hallucinations. S/I, H/I: Denies A/VH: Denies. Sleep: Will tally at 0500 hours. ADL's: Independent. Group attendance: Declined. Were meds taken: Yes, with some hesitation. Patient requested vitamin ointment be placed in a cup for self administration. Mental Status Exam Appearance: Wearing scrupb, looking disheveled. Eye contact: Fair. Behavior: Calm, pleasant, cooperative. Speech: Clear, normal rate, rhythm, and tone. Mood: Euthymic Affect: Congruent with mood. Thought process: Linear. Thought Content: Meeting own needs. Cognition: Alert, oriented to person and place. Insight: Poor. Judgment: Poor. Interventions PRN's used: Hydrocodone, Maalox. Therapeutic interventions: Introduced self and established rapport, maintained a safe and therapeutic environment, ensured contract for safety, provided clear and simple instructions, provided direction and encouragement in order to perform ADLs, monitored pain and splint to rt. hand, maintained Q 15imin safety checks. Restraints/seclusion/emergency medication: N/A Justification of Continued Inpatient Treatment: Pt. requires medication adjustments and a safe and supportive environment.
[2021-06-09] MEDS: aspirin 81mg tab.chew PO SCH (07:33)
[2021-06-09] MEDS: tamsulosin 0.4mg capsule PO SCH (07:33)
[2021-06-09] MEDS: lactobacillus rhamnosus 10,000 MMU CELLS/CAPSULE PO SCH ×2 (07:33→19:49)
[2021-06-09] MEDS: metFORMIN 850mg tablet PO SCH ×3 (07:33→20:01)
[2021-06-09] MEDS: atorvastatin 20mg tablet PO SCH (07:33)
[2021-06-09] MEDS: pantoprazole 40mg Tablet.DR PO SCH (07:34)
[2021-06-09] MEDS: sertraline 25mg tablet PO SCH (07:34)
[2021-06-09] MEDS: PALIPERIDONE 3 MG TAB.ER.24 PO SCH ×2 (07:34→20:01)
[2021-06-09] MEDS: nicotine 21mg patch - 24 hr TD SCH (07:39)
[2021-06-09] MEDS: vitamin A & D ointment-NF 1 APPLIC TUBE TP SCH ×2 (07:40→19:51)
[2021-06-09] MEDS: fluticasone nasal spray 16GM bottle NS SCH (07:40)
[2021-06-09 08:00] VITALS: BP 90/71
[2021-06-09] MEDS: HYDROcodone/acetaminophen 5mg/325mg tablet PO PRN ×2 (08:34→19:49)
[2021-06-09] MEDS: mag hydrox/Alum hydrox/simeth 30ml oral suspension PO PRN (14:14)
--- NOTE | 2021-06-09 17:29 | NUR ---
Nursing Progress Note: Legal hold: 5250 Expires 06/12. Client on involuntary status for GD Report received from FERN Villasenor with use of SBAR. Why they are here: Pt admitted to [place] [facility] for [facility] on a 5150 at 1556 for GD escorted from our ER by security via W/C. Pt was found trespassing and defecating on a doctors porch more than once. Pt covered in his own feces, delusional and responding to internal stimuli. Pt arrives to the unit incontinent of feces, with a splint to the R hand, RIS. Pt resistant to care. Pt refuses MRSA nasal swab. Refuses skin check. Pt does have various rashes with pictures taken in the ER. PT refuses to allow staff to help in the shower. PT kicks staff out of the shower room and showers self. Pt has history of schizoaffective disorder, anxiety, DM II. Pt arrived with no belongings except something in the ER safe. Clothes were soiled/ruined and disposed of. Assessment What has happened this shift: Received patient while he was ambulating down the hallway to the Community Room. Patient states I slept so good last night. When I looked out the window, the sun was coming up. Patient is pleasant and smiling while conversing with others in TV or Community Room. At 0830, patient stated My hand really is hurting this morning, while he rubs his right hand that has a cast and melvin wrap on it. Patient states I really need a pain pill, and rated his pain at an 8 throbbing of his right hand. Patient sleeping in bed approximately 2 hours after pain medication administered. Encouraged patient to attend Group Meeting, but patient continued to rest in bed for another hour. S/I, H/I: Denies A/VH: Denies. Sleep: 2 hr morning nap & 1 hour afternoon nap. ADL's: Independent. Group attendance: Encouraged but patient said he was too tired at this time. Were meds taken: Yes with slight hesitation. Patient refused Flonase & Vitamin A & D ointment. Mental Status Exam Appearance: Male with white hair and white benites wearing green scrubs. Eye contact: Fair. Behavior: Calm, pleasant, cooperative. Speech: Clear, normal rate, rhythm, and tone. Mood: Euthymic Affect: Congruent with mood. Thought process: Linear. Thought Content: Meeting own needs. Cognition: Alert and oriented x2 Insight: Poor. Judgment: Poor. Interventions PRN's used: Hydrocodone x1 & Maalox x1. Therapeutic interventions: Introduced self and established rapport, maintained a safe and therapeutic environment, ensured contract for safety, provided clear and simple instructions, provided direction and encouragement in order to perform ADLs, monitored pain and splint to rt. hand, maintained Q 15imin safety checks. Restraints/seclusion/emergency medication: N/A Justification of Continued Inpatient Treatment: Pt. requires medication adjustments and a safe and supportive environment.
[2021-06-09 19:00] VITALS: BP 98/65
[2021-06-10] MEDS: mag hydrox/Alum hydrox/simeth 30ml oral suspension PO PRN ×2 (00:32→19:52)
--- NOTE | 2021-06-10 02:43 | NUR ---
Nursing Progress Note: Legal hold: 5250 Client on involuntary status for GD Report received from [facility] with use of SBAR. Why they are here: Pt admitted to [place] [facility] for [facility] on a 5150 at 1556 for GD escorted from our ER by security via W/C. Pt was found trespassing and defecating on a doctors porch more than once. Pt covered in his own feces, delusional and responding to internal stimuli. Pt arrives to the unit incontinent of feces, with a splint to the R hand, RIS. Pt resistant to care. Pt refuses MRSA nasal swab. Refuses skin check. Pt does have various rashes with pictures taken in the ER. PT refuses to allow staff to help in the shower. PT kicks staff out of the shower room and showers self. Pt has history of schizoaffective disorder, anxiety, DM II. Pt arrived with no belongings except something in the ER safe. Clothes were soiled/ruined and disposed of. Assessment What has happened this shift: Pt was friendlier tonight, not angry with staff. Pt also accepted his hs meds without issue. Pt is still having significant pain in his hand but norco is providing adequate relief. Pt denies all mh symptoms, as he believes he is not mentally ill. Pt spent time watching tv before going to bed. Pt continues to have gerd at night, requesting Maalox. S/I, H/I: Denies A/VH: Denies Sleep: Refer to sleep assessment ADL's: Independent Group attendance: NA Were meds taken: yes ASE to meds: None observed or reported Mental Status Exam Appearance: Neat, appropriately dressed for the unit Eye contact: Fair Behavior: rude, appears agitated, self isolative Speech: Clear, soft, minimal Mood: Agitated Affect: Constricted Thought process: Linear Thought Content: Meeting needs Cognition: A&O X3 to self, place and time Insight: Poor Judgment: Poor Interventions PRN's used: norco, trazadone, maalox Therapeutic interventions: Introduced self and established rapport, maintained a safe and therapeutic environment, ensured contract for safety, provided clear and simple instructions, provided direction and encouragement in order to perform ADLs, monitored pain and splint to rt. hand, obtained orders for stool sample and A&D ointment to bilateral buttocks r/t to ongoing diarrhea, and maintained Q 15imin safety checks. Restraints/seclusion/emergency medication: NA Justification of Continued Inpatient Treatment: Patient requires interruption of current crisis and medication adjustments in a safe and supportive environment.
[2021-06-10] MEDS: HYDROcodone/acetaminophen 5mg/325mg tablet PO PRN ×2 (03:42→19:51)
[2021-06-10 08:00] VITALS: BP 105/71
[2021-06-10] MEDS: vitamin A & D ointment-NF 1 APPLIC TUBE TP SCH ×2 (08:00→19:54)
[2021-06-10] MEDS: fluticasone nasal spray 16GM bottle NS SCH (08:00)
[2021-06-10] MEDS: tamsulosin 0.4mg capsule PO SCH (08:55)
[2021-06-10] MEDS: PALIPERIDONE 3 MG TAB.ER.24 PO SCH ×2 (08:55→20:06)
[2021-06-10] MEDS: lactobacillus rhamnosus 10,000 MMU CELLS/CAPSULE PO SCH ×2 (08:56→19:51)
[2021-06-10] MEDS: atorvastatin 20mg tablet PO SCH (08:56)
[2021-06-10] MEDS: aspirin 81mg tab.chew PO SCH (08:56)
[2021-06-10] MEDS: nicotine 21mg patch - 24 hr TD SCH (08:56)
[2021-06-10] MEDS: sertraline 25mg tablet PO SCH (08:56)
[2021-06-10] MEDS: pantoprazole 40mg Tablet.DR PO SCH (08:56)
[2021-06-10] MEDS: metFORMIN 850mg tablet PO SCH ×3 (08:57→20:05)
--- NOTE | 2021-06-10 16:52 | NUR ---
Nursing Progress Note: Legal hold: 5250 Expires 06/12. Client on involuntary status for GD Report received from MARIVEL Gómez with use of SBAR. Why they are here: Pt admitted to [place] for [facility] on a 5150 at 1556 for GD escorted from our ER by security via W/C. Pt was found trespassing and defecating on a doctors porch more than once. Pt covered in his own feces, delusional and responding to internal stimuli. Pt arrives to the unit incontinent of feces, with a splint to the R hand, RIS. Pt resistant to care. Pt refuses MRSA nasal swab. Refuses skin check. Pt does have various rashes with pictures taken in the ER. PT refuses to allow staff to help in the shower. PT kicks staff out of the shower room and showers self. Pt has history of schizoaffective disorder, anxiety, DM II. Pt arrived with no belongings except something in the ER safe. Clothes were soiled/ruined and disposed of. Assessment What has happened this shift: Received patient sleeping at shift change, Pt woke prior to breakfast and sat in the community room. Pt continues to deny psychotic symptoms. Pt made no delusional comments to program writer today. Rather he was very crabby, "I have told you guys a million times I will take my medicine after I eat, it upsets my stomach". Clemente was crabby all day, but did get up for meal and retreated right back to bed where he slept off and on all day. No complaints of right arm pain today. S/I, H/I: Pt denies both. A/VH: Pt denies both. Sleep: naped all day ADL's: Independent Group attendance: N/A Were meds taken: Yes, without issue. Declined A&D ointment and Flonase. Mental Status Exam Appearance: Older male somewhat disheveled wearing green unit scrubs. Eye contact: Fair Behavior: Crabby Speech: Clear, normal rate/rhythm. Mood: depress Affect: Congruent with mood. Thought process: Linear. Thought Content: Meeting own needs. Cognition: A&O X to self, place. Insight: Poor Judgment: Poor Interventions PRN's used: [place] x1 Therapeutic interventions: Introduced self and established rapport, maintained a safe and therapeutic environment, ensured contract for safety, provided clear and simple instructions, provided direction and encouragement in order to perform ADLs, monitored pain and splint to rt. hand, maintained Q 15imin safety checks. Restraints/seclusion/emergency medication: N/A Justification of Continued Inpatient Treatment: Pt. requires medication adjustments and a safe and supportive environment.
[2021-06-10 20:14] VITALS: BP 101/47
--- NOTE | 2021-06-11 01:35 | NUR ---
Nursing Progress Note: Legal hold: 5250 Client on involuntary status for GD Report received from [facility] with use of SBAR. Why they are here: Pt admitted to [facility] for [facility] on a 5150 at 1556 for GD escorted from our ER by security via W/C. Pt was found trespassing and defecating on a doctors porch more than once. Pt covered in his own feces, delusional and responding to internal stimuli. Pt arrives to the unit incontinent of feces, with a splint to the R hand, RIS. Pt resistant to care. Pt refuses MRSA nasal swab. Refuses skin check. Pt does have various rashes with pictures taken in the ER. PT refuses to allow staff to help in the shower. PT kicks staff out of the shower room and showers self. Pt has history of schizoaffective disorder, anxiety, DM II. Pt arrived with no belongings except something in the ER safe. Clothes were soiled/ruined and disposed of. Assessment What has happened this shift: Pt was in his room at shift change, snoring but awoke for 1:1. Pt is still grumpy when asked questions but denies everything. Pt mostly isolates to his room, coming out only when he has needs. All hs meds taken without issue. S/I, H/I: Denies A/VH: Denies Sleep: Refer to sleep assessment ADL's: Independent Group attendance: NA Were meds taken: yes ASE to meds: None observed or reported Mental Status Exam Appearance: Neat, appropriately dressed for the unit Eye contact: Fair Behavior: rude, appears agitated, self isolative Speech: Clear, soft, minimal Mood: Agitated Affect: Constricted Thought process: Linear Thought Content: Meeting needs Cognition: A&O X3 to self, place and time Insight: Poor Judgment: Poor Interventions PRN's used: norco, trazadone, maalox Therapeutic interventions: Introduced self and established rapport, maintained a safe and therapeutic environment, ensured contract for safety, provided clear and simple instructions, provided direction and encouragement in order to perform ADLs, monitored pain and splint to rt. hand, obtained orders for stool sample and A&D ointment to bilateral buttocks r/t to ongoing diarrhea, and maintained Q 15imin safety checks. Restraints/seclusion/emergency medication: NA Justification of Continued Inpatient Treatment: Patient requires interruption of current crisis and medication adjustments in a safe and supportive environment.
[2021-06-11] MEDS: vitamin A & D ointment-NF 1 APPLIC TUBE TP SCH ×3 (08:00→20:00)
[2021-06-11] MEDS: nicotine 21mg patch - 24 hr TD SCH (08:00)
[2021-06-11] MEDS: fluticasone nasal spray 16GM bottle NS SCH (08:00)
[2021-06-11] MEDS: tamsulosin 0.4mg capsule PO SCH (08:49)
[2021-06-11] MEDS: sertraline 25mg tablet PO SCH (08:49)
[2021-06-11] MEDS: lactobacillus rhamnosus 10,000 MMU CELLS/CAPSULE PO SCH ×2 (08:49→20:12)
[2021-06-11] MEDS: atorvastatin 20mg tablet PO SCH (08:49)
[2021-06-11] MEDS: PALIPERIDONE 3 MG TAB.ER.24 PO SCH ×2 (08:49→20:11)
[2021-06-11] MEDS: aspirin 81mg tab.chew PO SCH (08:49)
[2021-06-11] MEDS: pantoprazole 40mg Tablet.DR PO SCH (08:49)
[2021-06-11] MEDS: metFORMIN 850mg tablet PO SCH ×3 (08:57→20:11)
[2021-06-11] MEDS: HYDROcodone/acetaminophen 5mg/325mg tablet PO PRN ×2 (10:54→20:12)
--- NOTE | 2021-06-11 15:23 | NUR ---
DCP Presenting Issues: Pt's 4990 will tomorrow, per MDT recommendation, pt will d/c tomorrow and will need to go directly to [facility] and meet w/rn clinician to establish outpatient mental health services. Interventions: SS had t/c w/[facility] TAD office and coordinated transportation upon d/c for pt to attend [id number], per t/c [facility] route delivery driver will warehouse order picker at 11:00 AM tomorrow. also had t/c w/ [facility]QU[facility] team CM/Clinician, per t/c [facility] team will make attempts to connect w/pt tomorrow whe he attends [facility] appoinment. Plan: pt to d/c tomorrow and go to [facility]. Sadie Urena LCSW Addendum: 06/11/21 at 1527 by Sadie Urena Amended: Links added.
--- NOTE | 2021-06-11 17:39 | NUR ---
Nursing Progress Note: Clemente Ramirez Legal hold: 5250 Client on involuntary status for GD Report received from MARIVEL Gómez with use of SBAR. Why they are here: Pt admitted to [facility] on a 5150 at 1556 for GD escorted from our ER by security via W/C. Pt was found trespassing and defecating on a doctors porch more than once. Pt covered in his own feces, delusional and responding to internal stimuli. Pt arrives to the unit incontinent of feces, with a splint to the R hand, RIS. Pt resistant to care. Pt refuses MRSA nasal swab. Refuses skin check. Pt does have various rashes with pictures taken in the ER. PT refuses to allow staff to help in the shower. PT kicks staff out of the shower room and showers self. Pt has history of schizoaffective disorder, anxiety, DM II. Pt arrived with no belongings except something in the ER safe. Clothes were soiled/ruined and disposed of. Assessment What has happened this shift: Received patient sleeping in bed at shift change. He refused RTN vital signs this morning despite encouragement. He joined in the community room with peers for breakfast. He retreated back to his room shortly after breakfast. Patient reluctantly took his RTN medications this morning, refusing his RTN Invega and later agreeing to take it. Patient endorsed that he came to the hospital for stomach pain and diarrhea and ended up in here. He was noted endorsing multiple times that he does not need to be here. Patient c/o R hand pain and was given PRN [place] at 1054 with effectiveness. He appeared to be in much better spirits later in the morning. He participated in group therapy and was noted interacting appropriately with peers. Patient denies SI/HI, AH or VH. Does not appear to be responding to IS. Rony wrap bandage to patients R hand changed and redressed d/t soiled dressing. New bandage is clean, dry and intact. Capillary refill to bilateral hands is brisk. He was active on the unit the majority of the day, observed sitting in the community room with peers periodically. He joined in the community room for all meal and snack times today. S/I, H/I: Pt denies both. A/VH: Pt denies both. Does not appear to be responding to IS. Sleep: Slept 8 hours last night per NOC shift. Took two short naps today. ADL's: Independent Group attendance: Yes Were meds taken: Refused his RTN Invega and later agreed to take it. Declined A&D ointment, Flonase, and Nicotine Patch. Mental Status Exam Appearance: Older male somewhat disheveled wearing green unit scrubs. Eye contact: Fair Behavior: Crabby Speech: Clear, normal rate/rhythm. Mood: Depressed Affect: Congruent with mood. Thought process: Linear. Thought Content: Meeting own needs. Does not need to be here. Cognition: A&O X to self, place. Insight: Poor Judgment: Poor Interventions PRN's used: [place] x1 Therapeutic interventions: Introduced self and established rapport, maintained a safe and therapeutic environment, ensured contract for safety, provided clear and simple instructions, provided direction and encouragement in order to perform ADLs, monitored pain and splint to rt. hand, maintained Q 15imin safety checks. Restraints/seclusion/emergency medication: N/A Justification of Continued Inpatient Treatment: Pt. requires medication adjustments and a safe and supportive environment.
[2021-06-11 20:00] VITALS: BP 114/63
[2021-06-11] MEDS: mag hydrox/Alum hydrox/simeth 30ml oral suspension PO PRN (21:27)
[2021-06-11] MEDS: traZODone 50mg tablet PO PRN (23:02)
--- NOTE | 2021-06-12 01:41 | NUR ---
Nursing Progress Note: Legal hold: 5250 Client on involuntary status for GD Report received from FERN Gutierrez with use of SBAR. Why they are here: Pt admitted to [facility] on a 5150 at 1556 for GD escorted from our ER by security via W/C. Pt was found trespassing and defecating on a doctors porch more than once. Pt covered in his own feces, delusional and responding to internal stimuli. Pt arrives to the unit incontinent of feces, with a splint to the R hand, RIS. Pt resistant to care. Pt refuses MRSA nasal swab. Refuses skin check. Pt does have various rashes with pictures taken in the ER. PT refuses to allow staff to help in the shower. PT kicks staff out of the shower room and showers self. Pt has history of schizoaffective disorder, anxiety, DM II. Pt arrived with no belongings except something in the ER safe. Clothes were soiled/ruined and disposed of. Assessment What has happened this shift: Pt was in his room at shift change, but came out for snack and was walking the halls a little bit later. pt was less irritable tonight and did not get mad at having to answer questions. pt continues to have gerd at night, requesting maalox most nights. pt also had a hard time sleeping and requested trazadone at approx 2330. all hs meds taken without issue. S/I, H/I: Denies A/VH: Denies Sleep: Refer to sleep assessment ADL's: Independent Group attendance: NA Were meds taken: yes ASE to meds: None observed or reported Mental Status Exam Appearance: Neat, appropriately dressed for the unit Eye contact: Fair Behavior: rude, appears agitated, self isolative Speech: Clear, soft, minimal Mood: Agitated Affect: Constricted Thought process: Linear Thought Content: Meeting needs Cognition: A&O X3 to self, place and time Insight: Poor Judgment: Poor Interventions PRN's used: norco, trazadone, maalox Therapeutic interventions: Introduced self and established rapport, maintained a safe and therapeutic environment, ensured contract for safety, provided clear and simple instructions, provided direction and encouragement in order to perform ADLs, monitored pain and splint to rt. hand, obtained orders for stool sample and A&D ointment to bilateral buttocks r/t to ongoing diarrhea, and maintained Q 15imin safety checks. Restraints/seclusion/emergency medication: NA Justification of Continued Inpatient Treatment: Patient requires interruption of current crisis and medication adjustments in a safe and supportive environment.
[2021-06-12] MEDS ORDERED: SERT-432 PO (07:15)
[2021-06-12] MEDS ORDERED: ALBU8HFA PO (07:15)
[2021-06-12] MEDS ORDERED: ATOR40TA71 PO (07:15)
[2021-06-12] MEDS ORDERED: FLUT16SP NS (07:15)
[2021-06-12] MEDS ORDERED: PALI9TAB4 PO (07:15)
[2021-06-12] MEDS ORDERED: GLU850T PO (07:15)
[2021-06-12] MEDS ORDERED: TRAZ-251 PO (07:15)
[2021-06-12] MEDS ORDERED: PANT40TA54 PO (07:15)
[2021-06-12] MEDS ORDERED: tamsulosin capsule PO (07:15)
[2021-06-12] MEDS ORDERED: NICO-687 TD (07:15)
[2021-06-12] MEDS ORDERED: PALI3TAB5 PO (07:15)
[2021-06-12] MEDS ORDERED: ASPI81TA53 PO (07:15)
[2021-06-12 07:40] VITALS: BP 134/72
[2021-06-12] MEDS: nicotine 21mg patch - 24 hr TD SCH (08:00)
[2021-06-12] MEDS: vitamin A & D ointment-NF 1 APPLIC TUBE TP SCH (08:00)
[2021-06-12] MEDS: fluticasone nasal spray 16GM bottle NS SCH (08:00)
[2021-06-12] MEDS: PALIPERIDONE 3 MG TAB.ER.24 PO SCH (08:27)
[2021-06-12] MEDS: aspirin 81mg tab.chew PO SCH (08:27)
[2021-06-12] MEDS: metFORMIN 850mg tablet PO SCH (08:28)
[2021-06-12] MEDS: sertraline 25mg tablet PO SCH (08:28)
[2021-06-12] MEDS: pantoprazole 40mg Tablet.DR PO SCH (08:28)
[2021-06-12] MEDS: tamsulosin 0.4mg capsule PO SCH (08:28)
[2021-06-12] MEDS: atorvastatin 20mg tablet PO SCH (08:28)
[2021-06-12] MEDS: lactobacillus rhamnosus 10,000 MMU CELLS/CAPSULE PO SCH (08:28)
--- NOTE | 2021-06-12 09:57 | NUR ---
Discharge Presenting Issues: Pt's scheduled to d/c this morning and walk-in at [facility] to establish outpatient services. Pt's brother called this clinician and expressed concerns that if pt rts to his apartment today, pt may resume banging on his neighbor's door (an elderly woman), neighbor informed pt's brother that she now owns a gun. Brother is concerned that pt or someone else may be harmed during the Holidays. Interventions: Clinician had t/c w/[facility] Franz, informed Shila that [facility] may need to determine if pt is able to rt home or meets criteria for crisis MH services, Shila was also informed that pt's neighbor owns a gun and pt very likely will resume his bxs (banging on people's door, yelling & screaming at them). Plan: Pt to d/c, clinician expects pt to rt to ER in a short time from d/c as pt has a history of not following thru with outpatient care. Sadie Urena LCSW Addendum: 06/12/21 at 1008 by Sadie Urena SS Amended: Links added.
--- NOTE | 2021-06-12 12:13 | NUR ---
Discharge Note 1140 discharge, via [facility] milk driver, patient refused to get in the car. Patient walked off property dressed in jeans and a blue sweat shirt. No shoes, patient did have his $ on him and 2 RABA passes. Follow-Up: Patient has been scheduled/referred to the following providers for post-hospital discharge and aftercare treatment. Psychiatrist: Upon completing an assessment with [facility] on 06/12/21 you will be scheduled a post-hospital medication appointment with a [facility] provider. Orthopedics: A referral's been made to Dr. Esau Andres for outpatient care. You are encouraged to contact Dr. Andres office at [phone] after June 25, 2021 to shcedule an outpatient follow-up. Primary Care Provider: You are encouraged to contact [facility] and schedule a post-hospital follow-up with your primary care physician. Therapist/Patient Financial Rep: [facility] will connect you with a shoe caser to assist you in navigating outpatient system of care. Discharge Address: [address] Transportation: [facility] [place] Program Coordinator will warehouse picker at 11:00 AM Patient given community crisis services information and National suicide hotline handout. Please call [phone] for your second outpatient smoking cessation appointment. Resources for education regarding mental illness: [address] [address] For urgent mental health crisis needs please contact Mobile Crisis Outreach Team Friday through Friday 8:30a to 5:00pm. Mobile Crisis Outreach Team [address] [place] [phone]
--- NOTE | 2021-06-12 12:20 | NUR ---
Upon discharge, film writer observed Clemente walk off campus and refuse to get in the [facility] car to get transported to [facility]. The drivers did follow him and it is unknown if they were able to convince him to go with them. Called, Balbina Torres, [facility], to inform her that Clmeente was discharged and refused to go to [facility]. Balbina reported they will keep an eye out for him and will swing by his apartment. KIRAN Meléndez
== END 2021-06-12 11:40 | disposition home or self-care (01) | DRG 885 ==
LOC: ER 15:44 → ED HOLD 05-26 13:20 → ADULT MH 05-26 16:16
PROVIDERS: ADMIT Psychiatry & Neurology Psychiatry; ATTEND Psychiatry & Neurology Psychiatry
DX: F25.9 Schizoaffective disorder, unspecified (principal); E11.9 Type 2 diabetes mellitus without complications; F43.10 Post-traumatic stress disorder, unspecified; Z20.822 Contact with and (suspected) exposure to COVID-19; Z60.2 Problems related to living alone; I10 Essential (primary) hypertension; W18.39XA Other fall on same level, initial encounter; D64.9 Anemia, unspecified; E66.3 Overweight; E78.5 Hyperlipidemia, unspecified; I25.10 Atherosclerotic heart disease of native coronary artery without angina pectoris; R21 Rash and other nonspecific skin eruption; J44.9 Chronic obstructive pulmonary disease, unspecified; K21.9 Gastro-esophageal reflux disease without esophagitis; N40.0 Benign prostatic hyperplasia without lower urinary tract symptoms; S62.346A Nondisplaced fracture of base of fifth metacarpal bone, right hand, initial encounter for closed fracture; F17.210 Nicotine dependence, cigarettes, uncomplicated; Z90.49 Acquired absence of other specified parts of digestive tract; Z79.899 Other long term (current) drug therapy; Y93.89 Activity, other specified; Y92.89 Other specified places as the place of occurrence of the external cause; Y99.8 Other external cause status; Z68.34 Body mass index [BMI] 34.0-34.9, adult
CPT/HCPCS: 36415; 73110; 73130; 80053; 80061; 80305; 80320; 81001; 82272; 82948; 83036; 84443; 85025; 87045; 87046; 87324; 87449; 87635; 89055; 99285; C9803